=== PATIENT | female | born 1970 | race Caucasian/White ===

== ENCOUNTER → 2017-09-21 14:29 | Outpatient (POV) | payer MEDICAID, SELFPAY | PROVIDERS: Visit Provider Internal Medicine | DX: Z00.00 Encounter for general adult medical examination without abnormal findings (principal) ==

== ENCOUNTER 2019-12-11 19:24 | Emergency (ER) | payer MEDICAID, SELFPAY ==
[2019-12-11 19:31] VITALS: BP 158/98; PULSE 100; RESP 20; TEMP 36.6; O2SAT 93; BMI 24.0
--- NOTE | 2019-12-11 19:59 | XR_ITS ---
PROCEDURE: XR WRIST RT MIN 3V CLINICAL INDICATION: fall Posttraumatic pain COMPARISON: No exams were available for comparison FINDINGS: No fracture, dislocation, lytic change, or blastic change evident. No significant degenerative change IMPRESSION: No acute findings. Dictated by: Bharath West MD 12/12/2019 06:58 Electronically signed by Bharath West MD in [place] 12/12/2019 06:58
--- NOTE | 2019-12-11 20:05 | HMH.EDUPEXT ---
ED Disposition Clinical Impression: Fracture of wrist Qualifiers: Encounter type: initial encounter Fracture type: closed Laterality: right Qualified Code(s): S62.101A - Fracture of unspecified carpal bone, right wrist, initial encounter for closed fracture Disposition: Home, Self-Care Condition on Discharge: Good Instructions: DI for Wrist Fracture Additional Instructions: ice and call ortho in am Referrals: Steffi Colón [Primary Care Provider] - Pankaj Nicole MD [Staff Physician] - - Critical Care Critical Care Time: No Attestation: On , the high probability of a clinically significant, sudden or life threatening deterioration of the following system(s) required my full and direct attention, intervention and personal management. The time I documented below is in addition to time spent performing reported procedures but includes the following listed in this critical care notation. Medical Decision Making - Medical Records Medical records reviewed: Yes: I reviewed the patient's medical records. - Shaheed Inquiry Pt receiving controlled substance: No Vital Signs: 12/11/19 19:31 Temperature 97.9 F Temperature Source Oral Pulse Rate [Right Radial] 100 H Respiratory Rate 20 Blood Pressure [Left Arm] 158/98 H Blood Pressure Mean [Left Arm] 118 Blood Pressure Source [Left Arm] Automatic Cuff Blood Pressure Position [Left Arm] Supine 02 Sat by Pulse Oximetry 93 L Oxygen Delivery Method Room Air - Lab Data Lab results reviewed: Yes: I reviewed the patient's lab results. Orders (Tests/Meds): ED MEDICATIONS Discontinued Medications Generic Name Dose Route Start Last Admin Trade Name Freq PRN Reason Stop Dose Admin Ketorolac Tromethamine 60 mg 12/11/19 19:59 12/11/19 20:02 Toradol 60mg/2ml Vial IM 12/11/19 20:00 60 mg ONCE ONE Administration ORDERS Category Date Time Status XR wrist RT min 3V Stat Exams 12/11/19 19:59 Ordered - Radiology Data #1 Image(s): Wrist Image Reviewed: Yes I reviewed the patient's radiology image Preliminary Findings: Abnormal (prob fx ) Upper Extremity HPI - General Chief Complaint: Extremity Injury, Upper Stated Complaint: AO [id number] Fell, injury to right wrist/arm Time Seen by Provider: 12/11/19 20:05 Mode of Arrival: Ambulatory Source of Information: Patient, Medical Record Limitations: No Limitations Description of Symptoms (Recalled from ER Triage Doc. by RN): fell last night on right wrist painful to move fingers and wrist. edema noted. - History of Present Illness HPI narrative: fell last pm with rt wrist injury - no other c/o MD complaint: injury to: right, wrist Onset (ago): day(s) Other Extremity Injury: Right: wrist Other injuries: none Handedness: right Place: home Severity: moderate Context: fall Associated symptoms: denies other symptoms - Related Data Previous Rx's Medication Instructions Recorded Azithromycin [Z-Florentin 250mg Tab*] 250 mg PO UD DOSE PK #6 tab 07/31/18 Benzonatate [Tessalon Perle 100mg 100 mg PO TID PRN #30 cap 07/31/18 Cap] predniSONE [Prednisone 5mg Tab 5 mg PO UD DOSE PK #21 pack 07/31/18 Dose-Pack] Cefdinir [Omnicef 300mg Capsule] 300 mg PO BID #20 cap 02/07/19 predniSONE [Deltasone 10mg tablet] 10 mg PO BID 5 Days #10 tab 02/07/19 Allergies Allergy/AdvReac Type Severity Reaction Status Date / Time No Known Allergies Allergy Verified 07/31/18 17:06 [facility] History - Hepatitis A Screen Drug use history?: No High risk sexual behaviors?: No History of sexually transmitted infection?: No Currently employed?: No Childcare worker?: No Do you have indoor plumbing?: Yes Do you have electricity?: Yes Attestation statement:: This patient has been screened for Hepatitis A risk factors. I have reviewed the patient's past medical history: Yes Medical History: Denies:: Cancer, Diabetes Mellitus Type 1, Diabetes Mellitus Type 2, MRSA Amputation: No Fractures: No -
[2019-12-11 20:44] VITALS: BP 150/92; PULSE 90; RESP 18; TEMP 36.6; O2SAT 95
== END 2019-12-11 20:50 | disposition home or self-care (01) ==
PROVIDERS: Emergency Provider Family Medicine; PCP Nurse Practitioner Family
DX: S62.101A Fracture of unspecified carpal bone, right wrist, initial encounter for closed fracture (principal); W01.0XXA Fall on same level from slipping, tripping and stumbling without subsequent striking against object, initial encounter; Y92.019 Unspecified place in single-family (private) house as the place of occurrence of the external cause; F17.210 Nicotine dependence, cigarettes, uncomplicated
CPT/HCPCS: 73110; 96372; 99283

== ENCOUNTER → 2020-03-21 18:37 | Outpatient (CLI) | payer MEDICAID, SELFPAY ==
--- NOTE | 2020-03-21 19:01 | XR_ITS ---
PROCEDURE: XR CHEST 2V CLINICAL HISTORY: COUGH COMPARISON: CR CXR CHEST(2 VIEWS-NOT PORTABLE) from 01/19/2015 CR CXR2V XR chest 2V from 07/31/2018 CR XR CHEST 2V from 02/07/2019 FINDINGS: There is mild cardiomegaly. There is also mild pulmonary venous congestion suggesting mild CHF. There is increased density in the right lung base consistent with infiltrate with small effusion. Hyperinflation noted with increased AP dimension of the chest consistent with COPD. IMPRESSION: Mild CHF with right lower lobe infiltrate with effusion Dictated by: Bharath West MD 03/21/2020 20:42 Bharath West MD in [place] 03/21/2020 20:42
== END ==
PROVIDERS: PCP Physician Assistant; Visit Provider Physician Assistant
DX: R05 Cough (principal)
CPT/HCPCS: 71046

== ENCOUNTER 2020-03-22 20:11 | Inpatient (IN) | payer MEDICAID, SELFPAY ==
[2020-03-22 20:12] VITALS: BP 136/97; PULSE 99; RESP 18; TEMP 36.9; O2SAT 88; BMI 26.4
--- NOTE | 2020-03-22 21:03 | XR_ITS ---
PROCEDURE: XR CHEST 2V CLINICAL HISTORY: sob Shortness of breath COMPARISON: CR CXR2V XR chest 2V from 07/31/2018 CR XR CHEST 2V from 02/07/2019 CR XR CHEST 2V from 03/21/2020 FINDINGS: Mild cardiomegaly with mild pulmonary venous congestion and small right pleural effusion consistent with CHF. Slight improvement right basilar atelectasis or infiltrate IMPRESSION: CHF with right basilar atelectasis or infiltrate slightly improved with small right effusion Dictated by: Bharath West MD 03/23/2020 07:40 Bharath West MD in [place] 03/23/2020 07:40
--- NOTE | 2020-03-22 21:04 | HMH.EDGENADL ---
ED Disposition Clinical Impression: Pneumonia Qualifiers: Pneumonia type: due to unspecified organism Laterality: right Lung location: lower lobe of lung Qualified Code(s): J18.9 - Pneumonia, unspecified organism Disposition: Admitted As Inpatient Condition on Discharge: Good Referrals: Nan Simon APRN [Primary Care Provider] - - Critical Care Critical Care Time: No Attestation: On 03/22/20, the high probability of a clinically significant, sudden or life threatening deterioration of the following system(s) required my full and direct attention, intervention and personal management. The time I documented below is in addition to time spent performing reported procedures but includes the following listed in this critical care notation. Medical Decision Making - Shaheed Inquiry Pt receiving controlled substance: No Vital Signs: 03/22/20 20:12 03/22/20 21:38 Temperature 98.5 F Temperature Source Oral Pulse Rate [Left Radial] 99 H 87 Respiratory Rate 18 20 Blood Pressure [Right Arm] 136/97 H 145/84 H Blood Pressure Mean [Right Arm] 110 104 Blood Pressure Source [Right Arm] Automatic Cuff Blood Pressure Position [Right Arm] Sitting 02 Sat by Pulse Oximetry 88 L 91 L Oxygen Delivery Method Room Air Nasal Cannula Oxygen Flow Rate (LPM) 2 - Lab Data Lab Results 03/22/20 20:54: WBC 9.3, RBC 5.54 H, Hgb 16.6 H, Hct 52.1 H, MCV 94.0, MCH 29.9, MCHC 31.8, RDW 13.3, Plt Count 165, MPV 9.8, Neut % (Auto) 71.4, Lymph % (Auto) 21.7, [place] % (Auto) 6.2, Eos % (Auto) 0.2, Baso % (Auto) 0.5, Neut # (Auto) 6.7, Lymph # (Auto) 2.0, [place] # (Auto) 0.6, Eos # (Auto) 0.0, Baso # (Auto) 0.1 03/22/20 20:54: Sodium 139, Potassium 3.5, Chloride 96 L, Carbon Dioxide 38 H, Anion Gap 8.5, BUN 11, Creatinine 0.70, Estimated Creat Clear 94, Estimated GFR 89, Est GFR ( Amer) 108, Glucose 127 H, Calcium 9.2, Troponin I < 0.01, NT-Pro-B Natriuret Pep 157 H 03/22/20 20:54: Lactate 1.1 Result diagrams: 03/22/20 20:54 03/22/20 20:54 Orders (Tests/Meds): ED MEDICATIONS Discontinued Medications Generic Name Dose Route Start Last Admin Trade Name Billie PRN Reason Stop Dose Admin Amoxicillin/Clavulanate Potassium 2 each 03/22/20 21:02 03/22/20 21:26 Amoxicillin/Pot Clavulan 500mg Tablet PO 03/22/20 21:03 2 each ONCE ONE Administration Protocol Azithromycin 500 mg 03/22/20 21:02 03/22/20 21:28 Azithromycin 250mg Tablet PO 03/22/20 21:03 500 mg ONCE ONE Administration Protocol Diazepam 2 mg 03/22/20 21:02 Diazepam 2mg Tablet PO 03/22/20 21:03 ONCE ONE Diazepam 2.5 mg 03/22/20 21:27 03/22/20 21:33 Diazepam 5mg Tablet PO 03/22/20 21:28 2.5 mg ONCE ONE Administration ORDERS Category Date Time Status XR chest 2V Stat Exams 03/22/20 21:03 Taken Covid-19 IgG/IgM ([facility]) Stat Lab 03/22/20 20:54 Received Troponin I Q3H Lab 03/23/20 00:15 Ordered Troponin I Q3H Lab 03/23/20 03:15 Ordered Blood Culture Stat Micro 03/22/20 20:54 Received Medical Decision Narrative: Presents for shortness of breath. Patient has past medical history of COPD, patient's x-ray from yesterday was concerning for pneumonia and congestive heart failure. Bedside echocardiogram demonstrates clear ejection fraction with B-lines in multiple lung green. Patient chest x-ray was obtained, no pneumothorax, does have a pleural effusion on the right side small with mild pulmonary edema. Patient was started on community-acquired pneumonia antibiotics with Augmentin and azithromycin, no risk factors for staph or Pseudomonas. Patient had rapid Covid test ordered, blood work was also ordered. On repeat assessment patient's troponin was negative, BNP was low. Patient is admitted to medicine for further work-up. General Adult HPI - General Chief complaint: Shortness of Breath/Dyspnea Stated complaint: SOB Time Seen by Provider: 03/22/20 21:00 Mode of Arrival: Ambulatory Limitations: No Li
[2020-03-22 21:10] LABS: Chloride 96 mmol/L (98-107); Potassium 3.5 mmoL/L (3.5-5.1); Sodium 139 mmol/L (136-145)
[2020-03-22 21:13] LABS: Blood Urea Nitrogen 11 mg/dl (7-17); Creatinine Clearance Estimated 94 mL/min (50-200); Estimated Glomerular Filt Rate 89 ml/min (>60); GFR (African American) 108 ML/MIN (>60)
[2020-03-22 21:14] LABS: Anion Gap 8.5 mEq/L (5-15); Calcium 9.2 mg/dl (8.4-10.2); Carbon Dioxide 38 mmol/L (22.0-30.0); Glucose 127 mg/dl (74-100)
[2020-03-22 21:15] LABS: Lactic Acid 1.1 mmol/L (0.7-2.1)
[2020-03-22 21:23] LABS: Basophils # 0.1 K/mm3 (0-0.2); Basophils % 0.5 % (0.1-2.0); Eosinophils % 0.2 % (0.1-12.0); Hematocrit 52.1 % (37.0-47.0); Hemoglobin 16.6 g/dL (12.2-16.2); Lymphocytes % 21.7 % (10-50); Mean Corpuscular HGB Conc 31.8 g/dL (31.8-35.4); Mean Corpuscular Hemoglobin 29.9 pg (27.0-31.2); Mean Platelet Volume 9.8 fl (7.4-10.4); Monocytes # 0.6 K/mm3 (0.1-1.0); Monocytes % 6.2 % (1.7-9.3); NT Pro Brain Natriuretic Pep. 157 pg/mL (0-125); Neutrophils # 6.7 K/mm3 (1.8-7.8); Neutrophils % 71.4 % (37.0-80.0); Platelet Count 165 K/mm3 (142-424); Red Blood Count 5.54 M/mm3 (4.20-5.40); Red Cell Distribution Width 13.3 % (11.5-17.5); White Blood Count 9.3 K/mm3 (4.8-10.8)
[2020-03-22 21:38] VITALS: BP 145/84; PULSE 87; RESP 20; O2SAT 91
[2020-03-22 21:56] LABS: Troponin I < 0.01 ng/ml (0.00-0.034)
[2020-03-22 22:30] LABS: Coronavirus 19 IgG Antibody Negative (Negative); Coronavirus 19 IgM Antibody Negative (Negative)
[2020-03-22 22:37] VITALS: BP 132/79; PULSE 74; RESP 16; O2SAT 92
[2020-03-22 23:05] VITALS: BMI 25.7
--- NOTE | 2020-03-22 23:12 | PC.NURSE ---
patient up to floor via wheelchair.
[2020-03-22 23:19] VITALS: BP 137/87; PULSE 71; RESP 16; TEMP 36.9; O2SAT 91
[2020-03-22 23:51] VITALS: PULSE 80
[2020-03-23] VITALS (11 sets, daily range): BP systolic 126–151; BP diastolic 64–94; PULSE 60–84; RESP 17–22; TEMP 36.4–37; O2SAT 90–97; BMI 26.2
[2020-03-23 01:00] LABS: Troponin I < 0.01 ng/ml (0.00-0.034)
[2020-03-23 03:53] LABS: Basophils # 0.1 K/mm3 (0-0.2); Basophils % 0.8 % (0.1-2.0); Eosinophils # 0.2 K/mm3 (0.0-0.4); Eosinophils % 2.1 % (0.1-12.0); Hematocrit 49.8 % (37.0-47.0); Hemoglobin 15.8 g/dL (12.2-16.2); Lymphocytes # 2.4 K/mm3 (0.7-4.5); Mean Corpuscular HGB Conc 31.7 g/dL (31.8-35.4); Mean Corpuscular Volume 94.8 fl (81-99); Mean Platelet Volume 9.3 fl (7.4-10.4); Monocytes # 0.9 K/mm3 (0.1-1.0); Monocytes % 10.9 % (1.7-9.3); Neutrophils # 4.9 K/mm3 (1.8-7.8); Neutrophils % 58.1 % (37.0-80.0); Platelet Count 141 K/mm3 (142-424); Red Blood Count 5.26 M/mm3 (4.20-5.40); Red Cell Distribution Width 13.1 % (11.5-17.5); White Blood Count 8.5 K/mm3 (4.8-10.8)
[2020-03-23 04:03] LABS: Anion Gap 5.5 mEq/L (5-15); Blood Urea Nitrogen 12 mg/dl (7-17); Calcium 8.6 mg/dl (8.4-10.2); Carbon Dioxide 38 mmol/L (22.0-30.0); Chloride 99 mmol/L (98-107); Creatinine Clearance Estimated 92 mL/min (50-200); Estimated Glomerular Filt Rate 89 ml/min (>60); GFR (African American) 108 ML/MIN (>60); Glucose 121 mg/dl (74-100); Potassium 3.5 mmoL/L (3.5-5.1); Sodium 139 mmol/L (136-145)
[2020-03-23 04:16] LABS: Troponin I < 0.01 ng/ml (0.00-0.034)
--- NOTE | 2020-03-23 05:51 | PC.NURSE ---
shift summary, no acute changes since admission assessment this shift by prior nurse, pt does get short of air with exertion, pt treated for cough and headache per AUG at 0148, no other complaints of JERNIGAN this shift, pt cough is now more wet but patient states nothing is really coming up, pt has stayed awake most of shift, has ambulated to bathroom independently one time, pt is on 2L NC with O2 sats between 90-96%, no complaints of chest pain, N/V, HR has been between 70-80, and has remained NSR on hall monitor
--- NOTE | 2020-03-23 08:40 | HMH.HP ---
*Admission Date: 03/22/20 *Chief complaint: shortness of breath *History of present illness: Ms. Chavez is a 49-year-old white female with a longstanding history of oxygen dependent COPD obstructive sleep apnea who follows with a nurse practitioner in [place] for primary care. She states that she has been bit more short of breath for the past month but acutely worse over the past week. Her primary care provider ordered an outpatient chest x-ray yesterday which was concerning for a possible right lower lobe infiltrate and mild congestive heart failure. She had been started on Levaquin and Medrol Dosepak as an outpatient but began noticing her O2 sats at home dropping into the 40s and 50s at night. She therefore presented to the emergency room. Work-up in the emergency room shows a normal white count. Her chest x-ray continued to show mild CHF, cardiomegaly, and atelectasis versus infiltrate in the right lower lobe. Color testing negative. BNP was low. She has been admitted for treatment of presumptive community-acquired pneumonia and exacerbation of her COPD. [facility] History Medical History: Reports:: Chronic Obstructive Pulmonary Disease (COPD), Hypertension Denies:: Cancer, Congestive Heart Failure, Coronary Artery Disease, Diabetes Mellitus Type 1, Diabetes Mellitus Type 2, MRSA *Have you ever received a pneumonia vaccine?: Yes *Have you received a flu vaccine this season?: Yes Other Medical History: Denies: Other (Sleep apnea) Laterality Cases: Right: Carpal Tunnel Release Other Surgeries: Yes: (x3) Amputation: No Fractures: No - *Social History Smoking Status: Current every day smoker Tobacco Type: cigarettes # Packs/Day (cigarettes): 2 Alcohol Intake: former Alcohol Intake Frequency:: 3 or more drinks per day Substance Use Type: former substance user, marijuana *Occupational Status:: disabled Household Members: family *Travel in the last 8 weeks: None Family Hx:: Coronary Artery Disease, Other (Her mother with COPD) Review of Systems - Constitutional Reports fatigue, Denies body ache(s) (I) - Eyes Denies change in vision - ENT Reports headache(s), Denies abnormal hearing, Denies difficulty swallowing - *Cardiovascular Reports shortness of breath with activity, Reports shortness of breath when lying down, Denies chest pain, Denies generalized swelling, Denies rapid, pounding, or irregular heartbeat - *Respiratory Reports other (See HPI) - *Gastrointestinal Denies abdominal pain, Denies change in bowel habits, Denies heartburn - *Genitourinary Denies abnormal periods, Denies difficulty urinating, Denies painful urination - *Musculoskeletal Denies joint pain - Integumentary/Breasts Denies hair loss, Denies unusual bruising - *Neurologic Reports headache(s) (mostly in the morning), Denies loss of vision, Denies dizziness - Psychiatric Reports abnormal sleep pattern, Reports confusion - Endocrine Denies excessive sweating - Hematologic/Lymphatic Denies easy bruising - Allergic/Immunologic Denies itchy eyes, Denies seasonal runny nose Meds Home Medications Medication Instructions Recorded Confirmed Type diazePAM [Valium 2mg tablet] 2 mg PO NEEDED PRN 03/22/20 03/22/20 History levoFLOXacin [Levaquin 500mg 500 mg PO DAILY 03/22/20 03/22/20 History tab] methylPREDNISolone [Methylpred Dp] 4 mg PO DAILY 03/22/20 03/22/20 History Albuterol Sulfate [Proair Hfa] 2 puffs IH Q6HP PRN 03/23/20 03/23/20 History Allergies Allergy/AdvReac Type Severity Reaction Status Date / Time No Known Allergies Allergy Verified 03/22/20 21:10 Exam Vital signs and Labs for Last 24 Hours: Temp Pulse Resp BP Pulse Ox 97.8 F 68 18 133/64 95 03/23/20 07:54 03/23/20 07:54 03/23/20 07:54 03/23/20 07:54 03/23/20 07:54 Laboratory Results - last 24 hr 03/22/20 20:54: WBC 9.3, RBC 5.54 H, Hgb 16.6 H, Hct 52.1 H, MCV 94.0, MCH 29.9, MCHC 31.8, RDW 13.3, Plt Count 165, MPV
--- NOTE | 2020-03-23 11:40 | HMH.PHAVTE ---
[facility] Pharmacy VTE Monitoring - Patient Demographics Admission date: 03/23/20 Report Date: 03/23/20 Time: 11:40 Allergies/Adverse Reactions: Patient Allergies No Known Allergies Allergy (Verified 03/22/20 21:10) Height: 1.52 m Weight: 60.47 kg Patient Problems: Current Active Problems Chronic obstructive pulmonary disease with acute exacerbation (Acute) Pneumonia (Acute) Community acquired pneumonia (Acute) Obstructive sleep apnea (Acute) Pulmonary edema (Acute) Cardiomegaly (Acute) Tobacco abuse disorder (Acute) - VTE Risk Labs: VTE Related Lab Results Hgb 15.8 g/dL (12.2-16.2) 03/23/20 03:40 Hct 49.8 % (37.0-47.0) H 03/23/20 03:40 Plt Count 141 K/mm3 (142-424) L 03/23/20 03:40 BUN 12 mg/dl (7-17) 03/23/20 03:40 Creatinine 0.70 mg/dl (0.52-1.04) 03/23/20 03:40 Estimated Creat Clear 92 mL/min (50-200) 03/23/20 03:40 Was VTE Risk Assessment Performed: Yes VTE Score: 5 VTE Risk Level: Low Risk - Prophylaxis Types of VTE Prophylaxis: TEDS Knee High (KENNEDY HOSE ORDERED) Location of Applied Device: Bilateral Lower Extremeties
--- NOTE | 2020-03-23 13:08 | PC.NURSE ---
A&OX4. PT HAS TOLERATED 2L NC WELL THROUGHOUT SHIFT. RESPIRATIONS REGULAR AND UNLABORED. WHEEZES AND CRACKLES NOTED THROUGHOUT LUNGS. PT IS AWARE FOR NEED FOR SPUTUM SAMPLE. SPECIMEN CUP AT BEDSIDE. NO EDEMA NOTED. +2 PULSES NOTED THROUGHOUT. HAND ASSISTANT FRONT END MANAGER EQUAL. SOFT AND NONTENDER ABDOMEN. ACTIVE BOWEL SOUNDS HEARD IN ALL 4 QUADRANTS. NO BM THUS FAR. PT VOIDS TO BATHROOM INDEPENDENTLY. IV WENT BAD AND A NEW IV IS BEING INSERTED AT THIS TIME. DAUGHTER AT BEDSIDE. PT REPORTED HEADACHE ONCE THIS SHIFT AND RECEIVED TYLENOL. PT IS CURRENTLY WALKING AROUND. VSS. WILL CONTINUE TO MONITOR.
--- NOTE | 2020-03-23 19:38 | PC.NURSE ---
P IS RESTING IN BED WITH FAMILY IN THE ROOM. AT 1245 TODAY PT LEFT THE FLOOR AND DID NOT RETURN BACK TO THE FLOOR TILL 1430. PT STATED SHE WENT OUTSIDE TO VISIT HER SISTER. WHEN PT ARRIVED BACK TO THE FLOOR O2 SATURATION WAS 90% ON 2 L NC. OXYGEN WAS REMOVED TO GET ROOM AIR SATURATION AND IT WAS 76%. PT WAS EDUCATED ON HOW DANGEROUS IT WAS FOR HER TO BE LEAVING THE FLOOR WITH AN O2 SATURATION THAT LOW AND SHE WAS ADVISED NOT TO LEAVE THE FLOOR AGAIN. PT WAS TOLD THAT SHE COULD AMBULATE ON THE FLOOR BUT SHE NEEDED TO HAVE HER OXYGEN ON AND 1 PERSON AMBULATING WITH HER AND IT COULD BE FAMILY OR A NURSE OR TECH ON THE FLOOR.
--- NOTE | 2020-03-23 19:53 | PC.NURSE ---
RT collected SPT and sent it to lab from second floor at 1820.
[2020-03-24] VITALS (13 sets, daily range): BP systolic 119–152; BP diastolic 55–89; PULSE 60–95; RESP 18–24; TEMP 36.5–36.8; O2SAT 77–92; BMI 26.3
--- NOTE | 2020-03-24 03:40 | PC.NURSE ---
Pt is currently sleeping in bed at this time. At the beginning of the shift pt tried to leave the floor x2. This nurse caught up with pt and daughter advising her how dangerous it is to be walking off the floor without o2 and then educating the pt that even if she went outside with o2 she could not go smoke. This nurse accompanied pt back to her room. Pt's room air sat was checked and was 82%, pt o2 sat increased to 90% with 2 L NC applied. Pt was offered a nicotine patch and she refused. Pt's daughter came out into the [place]o shortly after telling this nurse that mom agreed to a nicotine patch . Nicotine patch was applied to pt's Lt shoulder. Pt was also approached by Charge nurse this shift regarding our visitor policy. At one point, pt had 3 visitors in room. Charge nurse, Jonas Paniagua, HEMAL educated pt and visitors that there was only to be 1 well visitor in the pt's room at a time. Pt and family members verbalized understanding, and 2 of the 3 visitors left the hospital. Pt is A&O x4. Fine crackles with inspiratory and expiratory wheezing heard BL t/o upon auscultation. PIV in LAC remains patent and SL. Active bowel sounds in all 4 quads. Skin remains CDI besides areas where IV sticks have been attempted on pt. Pt is still currently on 2 L NC, 90% o2 SAT. Daughter remains at bedside. Call light is within reach. Will continue to monitor.
--- NOTE | 2020-03-24 10:19 | HMH.ACPN2 ---
Internal Medicine - PN: Subj *Date: 03/24/20 *Time: 10:19 Interval history: States she does not feel as well this morning. Seems to be coughing more and is still short of breath. States her oxygen came off during the night and her sats dropped. Nursing staff notes that she was off the floor and out of the building for almost 2 hours yesterday afternoon without her oxygen. On assessment her O2 sats dropped quickly to the 70s and 80s without oxygen. She is advised not to leave the floor and to stay on continuous oxygen. Exam Vital signs and Labs for Last 24 Hours: Temp Pulse Resp BP Pulse Ox 98.1 F 74 20 150/86 H 88 L 03/24/20 07:47 03/24/20 07:47 03/24/20 07:47 03/24/20 07:47 03/24/20 08:30 I & O for Last 24 hours: Intake & Output 03/21/20 03/22/20 03/23/20 03/24/20 11:59 11:59 11:59 11:59 Intake Total 600 / 600 1280 / 1280 Balance 600 / 600 1280 / 1280 Weight 133 lb 5 oz 134 lb Microbiology Reports for the Last 24 Hours: Microbiology 03/23/20 18:20 Sputum - Expectorated Sputum Gram Stain - Final 03/23/20 18:20 Sputum - Expectorated Sputum Sputum Culture - Preliminary Narrative: She appears not to feel well. She has a congested cough. No respiratory distress. Color is normal. Chest reveals generally diminished breath sounds throughout both lung green with coarse rhonchi and wheezes. Heart is regular. Extremities no edema. Assessment and Plan (1) Chronic obstructive pulmonary disease with acute exacerbation Status: Acute Category: Medical Code(s): J44.1 - Chronic obstructive pulmonary disease with (acute) exacerbation (2) Obstructive sleep apnea Status: Acute Category: Medical Code(s): G47.33 - Obstructive sleep apnea (adult) (pediatric) (3) Community acquired pneumonia Status: Acute Category: Medical Code(s): J18.9 - Pneumonia, unspecified organism (4) Pulmonary edema Status: Acute Category: Medical Code(s): J81.1 - Chronic pulmonary edema (5) Cardiomegaly Status: Acute Category: Medical Code(s): I51.7 - Cardiomegaly (6) Tobacco abuse disorder Status: Acute Category: Medical Code(s): Z72.0 - Tobacco use - Assessment and plan all Dx Assessment and Plan for all problems:: She had been going off the floor, likely to smoke. She has been advised to not leave the floor. Sputum cultures showing gram-positive cocci. ID still pending. Continue current antibiotic regimen. Plan echocardiogram for tomorrow and cardiology consult.
--- NOTE | 2020-03-24 15:27 | PC.NURSE ---
A&OX4. PT HAS TOLERATED 2.5L WELL THROUGHOUT SHIFT. SHE IS CURRENTLY ON 2L NC TOLERATING WELL. RESPIRATIONS REGULAR AND UNLABORED. RHONCHI NOTED THROUGHOUT LUNGS. ACTIVE BOWEL SOUNDS NOTED IN ALL 4 QUADRANTS. SOFT AND NONTENDER ABDOMEN. NO BM REPORTED. PT VOIDS INDEPENDENTLY PER BATHROOM. STEADY GAIT NOTED. HAND MAINFRAME APPLICATIONS DEVELOPER EQUAL. +2 PULSES NOTED THROUGHOUT. PT REPORTED PAIN ONCE THIS SHIFT SO FAR AND RECEIVED TYLENOL FOR A HEADACHE. NO EDEMA NOTED. PT HAS BEEN ON TELE THROUGHOUT SHIFT. PT ASKED TO GO FOR A WALK AND I TOLD HER NO SHE HAD TO STAY ON THE FLOOR. I DIDN'T FEEL COMFORTABLE W HER LEAVING WITH NO OXYGEN DUE TO COMING BACK YESTERDAY WITH A OXYGEN SATURATION IN THE 70S. SHE ISN'T ALLOWED TO TAKE AN OXYGEN TANK WITH HER EITHER. PT WAS UPSET AT FIRST, BUT UNDERSTANDS AND HAS BEEN FINE SINCE. I TOLD HER SHE WAS MORE THAN WELCOME TO WALK AROUND THE FLOOR IF DESIRED, BUT SHE HASN'T YET. SHE HAS BEEN SEEN WALKING IN HER ROOM SOME. PT ADMITTED TO WANTING TO GO OUTSIDE TO SMOKE. I EXPLAINED THE SMOKING POLICY HERE AND OFFERED A NICOTINE PATCH. SHE HAS REFUSED SEVERAL TIMES. PT REQUESTED STEROIDS. DR LEVINE WAS CONTACTED AND HE EXPLAINED HE DIDN'T WANT HER TO HAVE ANY DUE OT HAVING PULMONARY EDEMA AND STEROIDS CAN MAKE IT WORSE. THIS WAS EXPLAINED TO THE PT AND SHE WAS FINE WITH IT. DAUGHTER HAS BEEN AT BEDSIDE MOST OF THE DAY. PT IS CURRENTLY SLEEPING WITH CALL LIGHT WITHIN REACH. BED IN LOWEST POSITION. VSS. WILL CONTINUE TO MONITOR.
--- NOTE | 2020-03-24 19:54 | PC.NURSE ---
Pt began shift by telling SRNA that zulay RN had said she could leave the floor to go downstairs to visit with her son. Zulay RN did not tell this, instead told her that per MD she was not to leave the floor. Told this RN that she was allowed to leave the floor. Advised pt that per MD she could not leave floor.
--- NOTE | 2020-03-24 20:50 | PC.NURSE ---
Pt left floor at 2039 via wheelchair with daughter.
--- NOTE | 2020-03-24 21:16 | PC.NURSE ---
2109 Pt returned to floor. oxygen reapplied.
[2020-03-25] VITALS (15 sets, daily range): BP systolic 113–161; BP diastolic 61–84; PULSE 60–112; RESP 18–22; TEMP 36.4–36.9; O2SAT 88–92; BMI 26.5
--- NOTE | 2020-03-25 03:28 | PC.NURSE ---
Pt has slept intermittently this shift. Denies increased soa/pain. Lung sounds are diminished with occasional wheezes noted. Pt has shown no s/sx of anxiety since leaving floor at 2039 to smoke. Pt did arrive back to floor within the 30 min time limit set by Dr. Crandall. Pt continues to have frequent non-productive cough when awake.
--- NOTE | 2020-03-25 07:34 | HMH.CNCARD ---
History of Present Illness Consult date: 03/25/20 Requesting physician: Jeff Crandall Consult reason: congestive heart failure, shortness of breath Chief complaint: SOA Additional Medical History:: 1. COPD with continued tobacco use of 2 packs/day A. Intermittent use of oxygen at home 2. History of hypertension, on no medications at home 3. History of anxiety History of present illness: Ms. Chavez is a 49-year-old white female with a longstanding history of oxygen dependent COPD obstructive sleep apnea who follows with a nurse practitioner in [place] for primary care. She states that she has been bit more short of breath for the past month but acutely worse over the past week. Her primary care provider ordered an outpatient chest x-ray yesterday which was concerning for a possible right lower lobe infiltrate and mild congestive heart failure. She had been started on Levaquin and Medrol Dosepak as an outpatient but began noticing her O2 sats at home dropping into the 40s and 50s at night. She therefore presented to the emergency room. Work-up in the emergency room shows a normal white count. Her chest x-ray continued to show mild CHF, cardiomegaly, and atelectasis versus infiltrate in the right lower lobe. Color testing negative. BNP was low. She has been admitted for treatment of presumptive community-acquired pneumonia and exacerbation of her COPD. The above per Dr. Crandall. Pt denies any history of cardiac issues. She previously was on blood pressure medication but discontinued all of her medications about 3 years ago due to weight gain. She states since discontinuing her medication she has lost about 70 lbs. She only takes her oxygen and Valium at home. She continues to smoke 2 packs of cigarettes per day. On admission patient was noted to have evidence of mild CHF on chest x-ray. Mildly elevated BNP 157. Patient also noted to have evidence of right-sided infiltrate. Troponins have returned normal x3 with EKG showing sinus rhythm and no acute ST segment changes. Preliminary echocardiogram shows preserved ejection fraction with mild aortic insufficiency and evidence of mild diastolic dysfunction. [facility] History Medical History: Reports:: Chronic Obstructive Pulmonary Disease (COPD), Hypertension Denies:: Cancer, Congestive Heart Failure, Coronary Artery Disease, Diabetes Mellitus Type 1, Diabetes Mellitus Type 2, MRSA *Have you ever received a pneumonia vaccine?: Yes *Have you received a flu vaccine this season?: Yes Other Medical History: Denies: Other (Sleep apnea) Laterality Cases: Right: Carpal Tunnel Release Other Surgeries: Yes: (x3) Amputation: No Fractures: No - *Social History Smoking Status: Current every day smoker Tobacco Type: cigarettes # Packs/Day (cigarettes): 2 Alcohol Intake: former Alcohol Intake Frequency:: 3 or more drinks per day Substance Use Type: former substance user, marijuana *Occupational Status:: disabled Household Members: family *Travel in the last 8 weeks: None Family Hx:: Coronary Artery Disease, Other (Her mother with COPD) Meds Home Medications Medication Instructions Recorded Confirmed Type diazePAM [Valium 2mg tablet] 2 mg PO NEEDED PRN 03/22/20 03/22/20 History levoFLOXacin [Levaquin 500mg 500 mg PO DAILY 03/22/20 03/22/20 History tab] methylPREDNISolone [Methylpred Dp] 4 mg PO DAILY 03/22/20 03/22/20 History Albuterol Sulfate [Proair Hfa] 2 puffs IH Q6HP PRN 03/23/20 03/23/20 History Allergies Allergy/AdvReac Type Severity Reaction Status Date / Time No Known Allergies Allergy Verified 03/22/20 21:10 Exam Vital signs and Labs for Last 24 Hours: Temp Pulse Resp BP Pulse Ox 97.6 F 112 H 22 161/61 H 88 L 03/25/20 03:56 03/25/20 06:27 03/25/20 03:56 03/25/20 03:56 03/25/20 06:27 I & O for Last 24 hours: Intake & Output 03/22/20 03/23/20 03/24/20 03/25/20 11:59 11:59 11:59 11:59 Intake Total 600 / 600
--- NOTE | 2020-03-25 08:38 | CA_ITS ---
APPROVED REPORT EXAM: Comprehensive 2D, Doppler, and color-flow Echocardiogram [employer]: Aide Balderas CRT Ht: 5 ft 7 in Wt: 135lbs BSA: 1.71 BP: 110/70 mmHg Indications: chf,copd,smoker,htn,soa 2D Dimensions LVOT 1.98 cm (M/F) 1.5-2.5 M-Mode Dimensions RVDd 2.15 cm (0.9-2.6) LA Diam 3.12 cm (1.9-4.0) LVDd 5.42 cm (3.5-5.7) Ao Diam 2.94 cm (2.0-3.7) LVDs 3.95 cm (3.5-5.7) IVSd 1.00 cm (0.6-1.1) PWd 0.83 cm (0.6-1.1) EF (Teich) 52.40% FS 27.10% EDV (Teich) 142.50 mL ESV (Teich) 67.90 mL LV Diastology E Decel Time 170.00 (160-240 msec) E/A Ratio 0.9 MED E' 7.80 (< 7 cm/sec) E'/MED E' Ratio 12.40 (>14) LAT E' 10.00 (<10 cm/sec) E/LAT E' Ratio 9.67 (>14) Aortic Valve AI PHT 611.00 ms Mitral Valve MV E Max Indra. 97.00 (40-130 cm/s) MV A Velocity 103.00 (40-130 cm/s) E/A Ratio 0.94 MV Decel. Time 170.00 (160-240 ms) MV PHT 50.00 ms Left Ventricle Left atrium is mildly enlarged, left ventricle is normal size, mild concentric left ventricular hypertrophy, visually estimated ejection fraction 55% with no regional wall motion abnormality, diastolic parameters are inconclusive. Right Ventricle Right atrium and right ventricle are normal size and contractility. Aortic Valve Aortic valve is thickened and calcified leaflet chordae display good mobility, there is no aortic stenosis, there is mild aortic insufficiency. Mitral Valve Mitral valve leaflets are minimally thickened, there is mild mitral regurgitation. Tricuspid Valve Tricuspid valve is grossly normal, there is mild tricuspid regurgitation, tricuspid regurgitation jet velocity is inadequate for calculation of the right ventricular systolic pressure. Pulmonic Valve Pulmonic valve is poorly visualized. Great Vessels Aortic root is normal size. Pericardium No significant pericardial effusion noted. Conclusion 1. Mildly enlarged left atrium, normal left ventricular size, mild concentric left ventricular hypertrophy, visually estimated ejection fraction 55% with no regional wall motion abnormality, diastolic parameters are inconclusive. 2. Mild aortic, mild mitral and tricuspid regurgitation. 3. No significant pericardial effusion noted. Electronically signed by : Gurvinder Maravilla, 03/25/2020 19:53:24
--- NOTE | 2020-03-25 09:11 | HMH.ACPN2 ---
<Abbie Molina - Last Filed: 03/25/20 09:11> Internal Medicine - PN: Subj *Date: 03/25/20 *Time: 07:40 Interval history: She is resting quietly in bed this morning. She ate well and rested well overnight. She does report some headache and nausea currently. She continues with SOB, increased with exertion, which she feels has improved. Exam Vital signs and Labs for Last 24 Hours: Temp Pulse Resp BP Pulse Ox 97.7 F 78 18 131/76 91 L 03/25/20 07:43 03/25/20 07:43 03/25/20 08:07 03/25/20 07:43 03/25/20 07:43 I & O for Last 24 hours: Intake & Output 03/22/20 03/23/20 03/24/20 03/25/20 11:59 11:59 11:59 11:59 Intake Total 600 / 600 1280 / 1280 2019 Balance 600 / 600 1280 / 1280 2019 Weight 133 lb 5 oz 134 lb 135 lb 4.016 oz Microbiology Reports for the Last 24 Hours: Microbiology 03/22/20 20:54 Blood Blood Culture - Preliminary NO GROWTH AFTER 48 HOURS 03/22/20 20:54 Blood Blood Culture - Preliminary NO GROWTH AFTER 48 HOURS 03/23/20 18:20 Sputum - Expectorated Sputum Gram Stain - Final 03/23/20 18:20 Sputum - Expectorated Sputum Sputum Culture - Preliminary - Constitutional no acute distress - *Routine HEENT Exam Head: Present: normocephalic ENT: Present: mucous membranes moist - *Routine Respiratory Exam Absent: rales Comments: generally diminished with rhonchi and wheezes throughout L > R - *Routine Cardiovascular Exam Present: RRR - *Routine Abdominal Exam Present: soft, normoactive bowel sounds. Absent: tenderness, distended, guarding, firm, rigid - *Routine Extremities Exam Present: full ROM, pulses intact. Absent: edema, calf tenderness - *Routine Neurological Exam Present: alert, oriented X3, moving all extremities, normal speech Assessment and Plan (1) Chronic obstructive pulmonary disease with acute exacerbation Status: Acute Category: Medical Code(s): J44.1 - Chronic obstructive pulmonary disease with (acute) exacerbation (2) Obstructive sleep apnea Status: Acute Category: Medical Code(s): G47.33 - Obstructive sleep apnea (adult) (pediatric) (3) Community acquired pneumonia Status: Acute Category: Medical Code(s): J18.9 - Pneumonia, unspecified organism (4) Pulmonary edema Status: Acute Category: Medical Code(s): J81.1 - Chronic pulmonary edema (5) Cardiomegaly Status: Acute Category: Medical Code(s): I51.7 - Cardiomegaly (6) Tobacco abuse disorder Status: Acute Category: Medical Code(s): Z72.0 - Tobacco use - Assessment and plan all Dx Assessment and Plan for all problems:: Cardiology note seen and appreciated. Further per Dr. Crandall. <Jeff Crandall - Last Filed: 03/25/20 10:11> Internal Medicine - PN: Subj *Date: 03/25/20 *Time: 10:08 Exam Vital signs and Labs for Last 24 Hours: Temp Pulse Resp BP Pulse Ox 97.7 F 80 18 131/76 91 L 03/25/20 07:43 03/25/20 08:00 03/25/20 08:07 03/25/20 07:43 03/25/20 07:43 I & O for Last 24 hours: Intake & Output 03/22/20 03/23/20 03/24/20 03/25/20 11:59 11:59 11:59 11:59 Intake Total 600 / 600 1280 / 1280 2019 Balance 600 / 600 1280 / 1280 2019 Weight 133 lb 5 oz 134 lb 135 lb 4.016 oz Microbiology Reports for the Last 24 Hours: Microbiology 03/22/20 20:54 Blood Blood Culture - Preliminary NO GROWTH AFTER 48 HOURS 03/22/20 20:54 Blood Blood Culture - Preliminary NO GROWTH AFTER 48 HOURS 03/23/20 18:20 Sputum - Expectorated Sputum Gram Stain - Final 03/23/20 18:20 Sputum - Expectorated Sputum Sputum Culture - Preliminary Assessment and Plan (1) Chronic obstructive pulmonary disease with acute exacerbation Status: Acute Category: Medical Code(s): J44.1 - Chronic obstructive pulmonary disease with (acute) exacerbation (2) Obstru
--- NOTE | 2020-03-25 15:12 | PC.NURSE ---
PT HAS SLEPT AT MULTIPLE INTERVALS T/O SHIFT, PT HAS BEEN MEDICATED WITH COUGH MEDICINE *1, PT NOTED TO BE ASLEEP FOLLOWING ADMIN, PT CURRENTLY ON 2L NC FOR O2 SUPPORT WITH O2 SAT >93%, PT DENIES SOA BUT HAS BEEN NOTED TO DESAT TO MID 80'S WHEN NC IS REMOVED, PT HAS AMBULATED TO RR*1 THIS SHIFT, TOLERATED WELL, PT MENTIONED WANTING A CIGARETTE EARLIER IN SHIFT, THIS NURSE OFFERED TO CALL MD ABOUT NICOTINE PATCH BUT PT REFUSED, NO NEEDS AT THIS TIME, WILL CONTINUE TO MONITOR.
--- NOTE | 2020-03-25 19:14 | PC.NURSE ---
report given to maria de jesus
--- NOTE | 2020-03-25 23:54 | PC.NURSE ---
Pt left the floor at 2354 with daughter via wheelchair.
[2020-03-26] VITALS (8 sets, daily range): BP systolic 111–144; BP diastolic 77–79; PULSE 60–98; RESP 16–19; TEMP 36.7–36.8; O2SAT 82–94; BMI 26.1
--- NOTE | 2020-03-26 00:32 | PC.NURSE ---
Pt came back to the floor at 0030 with daughter via wheelchair. Pt RA sat was 79%. 2L NC reapplied
--- NOTE | 2020-03-26 02:33 | PC.NURSE ---
Addendum entered by Ana Rosa Tong RN 03/26/20 02:48: Pt back to floor at 0247 with daughter via wheelchair Original Note: Pt left the floor without notifying staff with daughter via wheelchair at 0228
--- NOTE | 2020-03-26 04:20 | PC.NURSE ---
Pt slept at the beginning of shift but has been awake t/o the night. Pt has left the floor x2 with her daughter via wheelchair. Pt is A&Ox4. Lung sounds are diminished t/o with expiratory wheezes scattered t/o. Pt has had to have between 2-3 L NC this shift. Pt does desat when not receiving supplemental o2 or when pt is moving around in her room, lowest this shift has been 78%. Currently pt is on 3LNC and o2 sat is 90%. Pt did c/o nasal dryness and irritation this shift so humidification was added to supplemental o2 this shift. Pt received a shower this shift and was able to tolerate independently. IS brought to pt's room this shift. At best pt can reach 1250 on IS. Daughter remains at bedside. No other acute changes or complaints at this time. Call light is within reach. Will continue to monitor.
--- NOTE | 2020-03-26 07:23 | HMH.PNCARD ---
Subjective Date: 03/26/20 Time: 07:23 Principal diagnosis: Pneumonia, mild CHF Interval history: 49-year-old white female in bed in no acute distress. She is sleeping at about a 45 degree angle with 2 pillows underneath. Patient is still wearing oxygen. She attempted to wear her CPAP last evening but when I was unable to use it for very long. She is waiting on some additional equipment/information from [employer]. Patient tolerated the addition of irbesartan and Lasix yesterday. Morning labs are pending. Exam Vital signs and Labs for Last 24 Hours: Temp Pulse Resp BP Pulse Ox 98.2 F 98 H 16 127/78 84 L 03/26/20 04:00 03/26/20 06:19 03/26/20 04:00 03/26/20 04:00 03/26/20 06:19 I & O for Last 24 hours: Intake & Output 03/23/20 03/24/20 03/25/20 03/26/20 11:59 11:59 11:59 11:59 Intake Total 600 / 600 1280 / 1280 2019 300 / 300 Balance 600 / 600 1280 / 1280 2019 300 / 300 Weight 133 lb 5 oz 134 lb 135 lb 4.016 oz 133 lb 1 oz Microbiology Reports for the Last 24 Hours: Microbiology 03/23/20 18:20 Sputum - Expectorated Sputum Gram Stain - Final 03/23/20 18:20 Sputum - Expectorated Sputum Sputum Culture - Preliminary - *Routine HEENT Exam Head: Present: normocephalic Eye: Present: EOMI, PERRL ENT: Present: mucous membranes moist - *Routine Respiratory Exam Present: diminished air movement - *Routine Cardiovascular Exam Present: RRR Comments: Mildly tachycardic with rate between 100 and 110 bpm this morning - *Routine Extremities Exam Absent: cyanosis, clubbing, edema - *Routine Neurological Exam Present: alert, oriented X3 Progress Note: A&P (1) Chronic obstructive pulmonary disease with acute exacerbation Status: Acute (2) Obstructive sleep apnea Status: Acute (3) Community acquired pneumonia Status: Acute (4) Pulmonary edema Status: Acute (5) Cardiomegaly Status: Acute (6) Tobacco abuse disorder Status: Acute Assessment and Plan for All Diagnoses:: 1. Pneumonia, on antibiotic therapy 2. Acute exacerbation of COPD, per Dr. Potts 3. Hypertension with hypertensive heart disease, restarted ARB therapy with Avapro 75 mg daily 4. Mild congestive heart failure, recommend Lasix 40 mg p.o. daily as needed weight gain or shortness of breath at home 5. Tobacco use, nicotine patch is in place Patient could be discharged home from a cardiology standpoint when medically stable per PCP. Home medication recommendations: Avapro 75 mg daily Lasix 40 mg daily as needed swelling, weight gain or shortness of breath Follow-up in our office in 2 weeks.
[2020-03-26 07:56] LABS: Chloride 95 mmol/L (98-107); Sodium 141 mmol/L (136-145)
[2020-03-26 07:57] LABS: Potassium 3.8 mmoL/L (3.5-5.1)
[2020-03-26 07:59] LABS: Blood Urea Nitrogen 11 mg/dl (7-17); Creatinine Clearance Estimated 81 mL/min (50-200); Estimated Glomerular Filt Rate 76 ml/min (>60); GFR (African American) 92 ML/MIN (>60)
[2020-03-26 08:00] LABS: Calcium 8.8 mg/dl (8.4-10.2); Glucose 110 mg/dl (74-100)
--- NOTE | 2020-03-26 08:09 | HMH.ACPN2 ---
<Tabatha Nayak - Last Filed: 03/26/20 08:09> Internal Medicine - PN: Subj *Date: 03/26/20 *Time: 08:09 Interval history: Patient states she does not feel well today. She does say that she slept some during the night. She is not eating well. Her daughter is eating her breakfast this morning. Her daughter stays with her throughout the night and takes her off the floor possibly to smoke. Nursing notes she has been out a couple of times during the night. She is voiding QS. Bowels have not moved in a couple of days but she is not eating. She ambulates without difficulty but her O2 sats do drop without her oxygen. Exam Vital signs and Labs for Last 24 Hours: Temp Pulse Resp BP Pulse Ox 98.1 F 84 19 144/77 H 88 L 03/26/20 07:48 03/26/20 07:48 03/26/20 07:48 03/26/20 07:48 03/26/20 07:48 I & O for Last 24 hours: Intake & Output 03/23/20 03/24/20 03/25/20 03/26/20 11:59 11:59 11:59 11:59 Intake Total 600 / 600 1280 / 1280 2019 660 / 660 Balance 600 / 600 1280 / 1280 2019 660 / 660 Weight 133 lb 5 oz 134 lb 135 lb 4.016 oz 133 lb 1 oz Microbiology Reports for the Last 24 Hours: Microbiology 03/23/20 18:20 Sputum - Expectorated Sputum Gram Stain - Final 03/23/20 18:20 Sputum - Expectorated Sputum Sputum Culture - Preliminary - Constitutional no acute distress Comments: Sitting up in the bed. Her daughter is at bedside. - *Routine Respiratory Exam Present: crackles (Scattered throughout anteriorly and posteriorly) - *Routine Cardiovascular Exam Present: RRR - *Routine Abdominal Exam Present: soft, normoactive bowel sounds. Absent: tenderness - *Routine Extremities Exam Absent: edema, calf tenderness - *Routine Neurological Exam Present: alert, oriented X3 Assessment and Plan (1) Chronic obstructive pulmonary disease with acute exacerbation Status: Acute Category: Medical Code(s): J44.1 - Chronic obstructive pulmonary disease with (acute) exacerbation (2) Obstructive sleep apnea Status: Acute Category: Medical Code(s): G47.33 - Obstructive sleep apnea (adult) (pediatric) (3) Community acquired pneumonia Status: Acute Category: Medical Code(s): J18.9 - Pneumonia, unspecified organism (4) Pulmonary edema Status: Acute Category: Medical Code(s): J81.1 - Chronic pulmonary edema (5) Cardiomegaly Status: Acute Category: Medical Code(s): I51.7 - Cardiomegaly (6) Tobacco abuse disorder Status: Acute Category: Medical Code(s): Z72.0 - Tobacco use (7) Noncompliance with treatment plan Status: Acute Category: Medical Code(s): Z91.11 - Patient's noncompliance with dietary regimen - Assessment and plan all Dx Assessment and Plan for all problems:: Patient continues to go outside and audibly smoke despite direction by staff not to do so. She is probably ready to go home. She does use oxygen at home as needed. <Jeff Crandall - Last Filed: 03/26/20 12:17> Internal Medicine - PN: Subj *Date: 03/26/20 *Time: 12:16 Exam Vital signs and Labs for Last 24 Hours: Temp Pulse Resp BP Pulse Ox 98.1 F 90 19 144/77 H 82 L 03/26/20 07:48 03/26/20 08:00 03/26/20 07:48 03/26/20 07:48 03/26/20 10:28 Laboratory Results - last 24 hr 03/26/20 07:42: Sodium 141, Potassium 3.8, Chloride 95 L, Carbon Dioxide 41 H*, Anion Gap 8.8, BUN 11, Creatinine 0.80, Estimated Creat Clear 81, Estimated GFR 76, Est GFR ( Amer) 92, Glucose 110 H, Calcium 8.8 I & O for Last 24 hours: Intake & Output 03/24/20 03/25/20 03/26/20 03/27/20 11:59 11:59 11:59 11:59 Intake Total 1280 / 1280 2019 660 / 660 Balance 1280 / 1280 2019 660 / 660 Weight 134 lb 135 lb 4.016 oz 133 lb 1 oz Microbiology Reports for the Last 24 Hours: Microbiology 03/23/20 18:20 Sputum - Expectorated Sputum Gram Stain - Final 03/23/20 18:20 Sputum - Expectorated Sputum Sputum Culture - Nancy
--- NOTE | 2020-03-26 08:47 | HMH.ACPN ---
Internal Medicine - PN: Subj *Date: 03/26/20 *Time: 08:47 Exam Vital signs and Labs for Last 24 Hours: Temp Pulse Resp BP Pulse Ox 98.1 F 84 19 144/77 H 88 L 03/26/20 07:48 03/26/20 07:48 03/26/20 07:48 03/26/20 07:48 03/26/20 07:48 I & O for Last 24 hours: Intake & Output 03/23/20 03/24/20 03/25/20 03/26/20 23:59 23:59 23:59 23:59 Intake Total 1080 / 1320 2340 / 2340 780 / 780 360 / 360 Balance 1080 / 1320 2340 / 2340 780 / 780 360 / 360 Weight 60.47 kg 60.781 kg 61.349 kg 60.356 kg Microbiology Reports for the Last 24 Hours: Microbiology 03/23/20 18:20 Sputum - Expectorated Sputum Gram Stain - Final 03/23/20 18:20 Sputum - Expectorated Sputum Sputum Culture - Final Normal Respiratory Harini Assessment and Plan (1) Chronic obstructive pulmonary disease with acute exacerbation Status: Acute Category: Medical Code(s): J44.1 - Chronic obstructive pulmonary disease with (acute) exacerbation (2) Obstructive sleep apnea Status: Acute Category: Medical Code(s): G47.33 - Obstructive sleep apnea (adult) (pediatric) (3) Community acquired pneumonia Status: Acute Category: Medical Code(s): J18.9 - Pneumonia, unspecified organism (4) Pulmonary edema Status: Acute Category: Medical Code(s): J81.1 - Chronic pulmonary edema (5) Cardiomegaly Status: Acute Category: Medical Code(s): I51.7 - Cardiomegaly (6) Tobacco abuse disorder Status: Acute Category: Medical Code(s): Z72.0 - Tobacco use (7) Noncompliance with treatment plan Status: Acute Category: Medical Code(s): Z91.11 - Patient's noncompliance with dietary regimen The patient's infection will respond to the chosen ABx?: Yes Is the patient receiving the right drug, dose, and route?: Yes Could a more targeted ABx be ordered?: No (NO GROWTH IN CURRENT CULTURES.)
--- NOTE | 2020-03-26 08:53 | SW/DCPLANNER ---
MADE ROUNDS WITH DR BOCANEGRA THIS MORNING, HE STATED PATIENT IS CLOSE TO BEING READY TO DISCHARGE BUT WAITING ON CULTURES TO ENSURE PATIENT IS ON THE RIGHT ANTIBIOTIC... PATIENT CONTINUE TO SMOKE AND WAS OUTSIDE WITH DAUGHTER SEVERAL TIMES LAST EVENING AND THEN REQUIRED 02 R/T SHORTNESS OF BREATH... PATIENT MAY BE ABLE TO DISCHARGE LATER IN THE DAY IF CULTURES ARE BACK...
[2020-03-26 08:56] LABS: Anion Gap 8.8 mEq/L (5-15); Carbon Dioxide 41 mmol/L (22.0-30.0)
--- NOTE | 2020-03-26 09:02 | PC.NURSE ---
received call from lab with CO2 level of 41. Notified Dr. Crandall f2f as he is still in dictation room. He verbalized understanding. No new orders received @ this time.
--- NOTE | 2020-03-26 10:27 | PC.NURSE ---
pt just arrived back to floor from being downstairs via wheelchair. She was not wearing O2. Her O2 sat on RA is 82%.
--- NOTE | 2020-03-26 13:00 | PC.NURSE ---
Dr. Tafoya agreed to see the patient in the Pulmonology Clinic once they have seen PCP on 04/12/20 approx.
--- NOTE | 2020-03-28 10:47 | HMH.DCSUM ---
General - General Admission date:: 03/22/20 <Jeff Crandall - 03/30/20 09:03> 03/22/20 <Tabatha Nayak - 03/28/20 11:34> HPI HPI: Ms. Chavez is a 49-year-old white female with a longstanding history of oxygen dependent COPD, obstructive sleep apnea who follows with a nurse practitioner in [place] for primary care. She states that she has been a bit more short of breath for the past month but acutely worse over the past week. Her primary care provider ordered an outpatient chest x-ray yesterday which was concerning for a possible right lower lobe infiltrate and mild congestive heart failure. She had been started on Levaquin and Medrol Dosepak as an outpatient but began noticing her O2 sats at home dropping into the 40s and 50s at night. She therefore presented to the emergency room. Work-up in the emergency room showed a normal white count. Her chest x-ray continued to show mild CHF, cardiomegaly, and atelectasis versus infiltrate in the right lower lobe. COVID testing negative. BNP was low. She was admitted for treatment of presumptive community-acquired pneumonia and exacerbation of her COPD. <Tabatha Nayak - 03/28/20 11:34> Hospital Course Hospital Course: Patient was started on Zithromax and Augmentin on admission. She received DuoNeb treatments as well as her home medicines. She was given IV Lasix daily and a dose of methylprednisolone. She never really felt well. She had a cough and was short of breath. Her O2 sats did drop without her oxygen. Despite nursing education and instruction patient did leave the floor and go out of the building several times daily. This was without her oxygen. Her O2 sats were found to be in the 70s and 80s with her return. She did have a history of hypertension as well and was seen by cardiology for her CHF. With assessment by cardiology she was felt to be short of breath mainly due to her acute exacerbation of COPD with pneumonia and mild CHF. She was started on a low-dose of diuretics for diuresis and to continue with as needed Lasix when at home. She did have normal troponins with no acute EKG changes. Echocardiogram showed mild diastolic dysfunction. Further cardiac testing was not recommended until after her recovery from pneumonia. She was started on irbesartan in light of her diastolic dysfunction. Beta-blockers were not considered due to her exacerbation of COPD and mild CHF. She had a periodic headache and nausea. Patient continued to insist on going out to the parking lot with her family likely to smoke. Cough became less productive and sputum was not as dark. Cultures eventually were reported as negative. On 03/26/2020 patient stated she did not feel well. Clinically she appeared improved. She stated she slept. Nursing noted that she was out twice during the night with her daughter without oxygen most likey to smoke. She was unable to use her CPAP due to multiple issues. She planned to discuss these with [facility]. She did ambulate without difficulty but her O2 sats continued to drop without oxygen. On this date patient was stable to go home. She was discharged home in stable and satisfactory condition. She will finish her course of antibiotics and cardiology recommended prn Lasix. She will have a follow-up with pulmonology and with PCP, Katina Lovelace APRN. She was instructed on a low-sodium diet. Patient was not interested in smoking cessation. She was offered repeatedly a nicotine patch which she never utilized. <Tabatha Nayak - 03/28/20 11:34> Objective Vital signs: Temp Pulse Resp BP Pulse Ox 98.3 F 61 19 126/77 91 L 03/26/20 12:00 03/26/20 13:20 03/26/20 12:00 03/26/20 12:00 03/26/20 13:20 <Jeff Crandall - 03/30/20 09:03> Temp Pulse Resp BP Pulse Ox 98.3 F 61 19 126/77 91 L 03/26/20 12:00 03/26/20 13:20 03/26/20 12:00 03/26/20 12:00 03/26/20 13:20 <Tabatha Nayak - 03/28/20 11:34> N
== END 2020-03-26 14:04 | disposition home or self-care (01) | DRG 190 ==
LOC: ER 22:11 → 2ND 23:06
PROVIDERS: Physician Assistant; Admitting Provider Family Medicine; Emergency Provider Emergency Medicine; PCP Nurse Practitioner; Visit Provider Family Medicine
DX: J44.1 Chronic obstructive pulmonary disease with (acute) exacerbation (principal); J18.9 Pneumonia, unspecified organism; I50.30 Unspecified diastolic (congestive) heart failure; J81.1 Chronic pulmonary edema; Z99.81 Dependence on supplemental oxygen; Z72.0 Tobacco use; G47.33 Obstructive sleep apnea (adult) (pediatric); Z91.19 Patient's noncompliance with other medical treatment and regimen; Z79.52 Long term (current) use of systemic steroids; Z79.899 Other long term (current) drug therapy; I11.0 Hypertensive heart disease with heart failure
CPT/HCPCS: 36415; 71046; 80048; 83605; 83880; 84484; 85025; 86328; 87040; 87070; 87205; 93306; 94640; 94761; 99284; J0456; J2405

== ENCOUNTER 2020-08-20 14:52 | Emergency (ER) | payer MEDICAID, SELFPAY ==
[2020-08-20] VITALS (12 sets, daily range): BP systolic 95–105; BP diastolic 64–71; PULSE 77–88; RESP 19–20; TEMP 36.9; O2SAT 72–96; BMI 26.4
--- NOTE | 2020-08-20 15:04 | HMH.EDSOB ---
ED Disposition Clinical Impression: Other medical devices associated with adverse incidents, Hypoxia Disposition: Home, Self-Care Condition on Discharge: Good Referrals: PCP,No [Primary Care Provider] - 3 days Time of Disposition: 16:21 - Critical Care Critical Care Time: No Attestation: On , the high probability of a clinically significant, sudden or life threatening deterioration of the following system(s) required my full and direct attention, intervention and personal management. The time I documented below is in addition to time spent performing reported procedures but includes the following listed in this critical care notation. Medical Decision Making - Medical Records Medical records reviewed: Yes: I reviewed the patient's medical records. - Shaheed Inquiry Pt receiving controlled substance: No Vital Signs: 08/20/20 14:53 08/20/20 15:05 08/20/20 15:15 Temperature 98.5 F Temperature Source Oral Pulse Rate 87 84 Pulse Rate [Left Radial] 88 Respiratory Rate 20 Blood Pressure Blood Pressure [Right Arm] 95/64 L Blood Pressure Mean Blood Pressure Mean [Right Arm] 74 Blood Pressure Source [Right Arm] Automatic Cuff Blood Pressure Position [Right Arm] Sitting 02 Sat by Pulse Oximetry 95 89 L 90 L Oxygen Delivery Method Nasal Cannula Oxygen Flow Rate (LPM) 2 08/20/20 15:17 08/20/20 15:18 08/20/20 15:30 Temperature Temperature Source Pulse Rate 85 82 Pulse Rate [Left Radial] Respiratory Rate Blood Pressure 97/69 L Blood Pressure [Right Arm] Blood Pressure Mean 78 Blood Pressure Mean [Right Arm] Blood Pressure Source [Right Arm] Blood Pressure Position [Right Arm] 02 Sat by Pulse Oximetry 90 L 92 L Oxygen Delivery Method Oxygen Flow Rate (LPM) - Lab Data Lab results reviewed: Yes: I reviewed the patient's lab results. Lab Results 08/20/20 14:54: WBC 5.2, RBC 5.20, Hgb 16.3 H, Hct 51.7 H, MCV 99.4 H, MCH 31.3 H, MCHC 31.5 L, RDW 12.7, Plt Count 149, MPV 9.3, Neut % (Auto) 57.0, Lymph % (Auto) 32.5, [place] % (Auto) 6.3, Eos % (Auto) 3.0, Baso % (Auto) 1.2, Neut # (Auto) 3.0, Lymph # (Auto) 1.7, [place] # (Auto) 0.3, Eos # (Auto) 0.2, Baso # (Auto) 0.1 08/20/20 14:54: Sodium 141, Potassium 3.5, Chloride 97 L, Carbon Dioxide 39 H, Anion Gap 8.5, BUN 5 L, Creatinine 0.80, Estimated Creat Clear 84, Estimated GFR 76, Est GFR ( Amer) 92, Glucose 92, Calcium 8.8, Troponin I < 0.01 08/20/20 14:54: NT-Pro-B Natriuret Pep 46.5 Result diagrams: 08/20/20 14:54 08/20/20 14:54 Orders (Tests/Meds): ORDERS Category Date Time Status Troponin I Q3H Lab 08/20/20 18:15 Ordered Troponin I Q3H Lab 08/20/20 21:15 Ordered - Radiology Data #1 Image(s): Chest Image Reviewed: Yes I reviewed the patient's radiology results, Yes I reviewed the patient's radiology image, Yes I have reviewed radiologist's interpretation Preliminary Findings: Abnormal Right lower lobe infiltrate versus developing nodule. - ECG Data Tracing #1 Normal sinus rhythm, 81 bpm, no ST elevation or depression, no ectopy, normal intervals. ECG initial impression date: 08/20/20 ECG initial impression time: 15:28 Medical Decision Narrative: 50yo F evaluated emergency department with concern for pneumonia from her PCPs office today. Patient is in no acute distress on initial evaluation. Patient is afebrile, satting 94% on her 2 L nasal cannula. Chest x-ray, EKG, CBC, BMP, troponin and BNP have been collected. Differential diagnosis includes but not limited to: ACS/[place], CHF exacerbation, COPD exacerbation, pneumonia, pneumothorax, viral process. Metabolic panel and CBC are unremarkable. Chest x-ray is read as possible right lower lobe infiltrate versus developing nodule. The patient has no change in her chronic cough, has no increased sputum production, has no fever, has no increased supplemental O2 need. The patient does not meet criteria for CHF exacerbation,
--- NOTE | 2020-08-20 15:05 | XR_ITS ---
PROCEDURE: XR CHEST PORTABLE CLINICAL HISTORY: sob Shortness of breath COMPARISON: CR XR CHEST 2V from 02/07/2019 CR XR CHEST 2V from 03/21/2020 CR XR CHEST 2V from 03/22/2020 FINDINGS: The cardiomediastinal silhouette and pulmonary vascularity are within normal limits. There is chronic coarsening bronchovascular markings consistent with smoking related lung disease. Patchy density is present in the right lung base may be due to an area of atelectasis or infiltrate. Suggest following till clear in this patient with smoking history. No acute bony abnormalities. IMPRESSION: Chronic changes with parenchymal opacity in the right lung base which may be due to an area of atelectasis or infiltrate. Suggest following till clear to confirm resolution as developing nodule is not excluded. Dictated by: Bharath West MD 08/20/2020 16:12 Bharath West MD in [place] 08/20/2020 16:12
--- NOTE | 2020-08-20 15:24 | ECG_ITS ---
APPROVED REPORT Exam: Resting ECG HR:81 bpm ECG Measurements Heart Rate 81 AXES ND 142 P 56 QRSd 70 QRS 98 QT 402 T 46 QTc 466 Conclusion Normal sinus rhythm Rightward axis Borderline ECG Electronically signed by : Johnie Briones, 08/20/2020 19:34:35
[2020-08-20 15:54] LABS: Basophils # 0.1 K/mm3 (0-0.2); Basophils % 1.2 % (0.1-2.0); Eosinophils # 0.2 K/mm3 (0.0-0.4); Hematocrit 51.7 % (37.0-47.0); Hemoglobin 16.3 g/dL (12.2-16.2); Lymphocytes # 1.7 K/mm3 (0.7-4.5); Lymphocytes % 32.5 % (10-50); Mean Corpuscular HGB Conc 31.5 g/dL (31.8-35.4); Mean Corpuscular Hemoglobin 31.3 pg (27.0-31.2); Mean Corpuscular Volume 99.4 fl (81-99); Mean Platelet Volume 9.3 fl (7.4-10.4); Monocytes # 0.3 K/mm3 (0.1-1.0); Monocytes % 6.3 % (1.7-9.3); Platelet Count 149 K/mm3 (142-424); Red Cell Distribution Width 12.7 % (11.5-17.5); White Blood Count 5.2 K/mm3 (4.8-10.8)
[2020-08-20 16:01] LABS: Blood Urea Nitrogen 5 mg/dl (7-17); Calcium 8.8 mg/dl (8.4-10.2); Chloride 97 mmol/L (98-107); Creatinine Clearance Estimated 84 mL/min (50-200); Estimated Glomerular Filt Rate 76 ml/min (>60); GFR (African American) 92 ML/MIN (>60); Glucose 92 mg/dl (74-100); Potassium 3.5 mmoL/L (3.5-5.1); Sodium 141 mmol/L (136-145)
[2020-08-20 16:09] LABS: Anion Gap 8.5 mEq/L (5-15); Carbon Dioxide 39 mmol/L (22.0-30.0)
[2020-08-20 16:11] LABS: NT Pro Brain Natriuretic Pep. 46.5 pg/mL (0-125)
[2020-08-20 16:15] LABS: Troponin I < 0.01 ng/ml (0.00-0.034)
== END 2020-08-20 16:30 | disposition home or self-care (01) ==
PROVIDERS: Emergency Provider Family Medicine
DX: R09.02 Hypoxemia (principal); J18.9 Pneumonia, unspecified organism; J44.9 Chronic obstructive pulmonary disease, unspecified; I10 Essential (primary) hypertension; F17.210 Nicotine dependence, cigarettes, uncomplicated
CPT/HCPCS: 71045; 80048; 83880; 84484; 85025; 93005; 99282

== ENCOUNTER 2020-08-29 19:50 | Emergency (ER) | payer MEDICAID, SELFPAY ==
[2020-08-29 20:06] VITALS: BP 116/77; PULSE 82; RESP 23; TEMP 36.9; O2SAT 94; BMI 28.1
--- NOTE | 2020-08-29 20:13 | ECG_ITS ---
APPROVED REPORT Exam: Resting ECG HR:78 bpm ECG Measurements Heart Rate 78 AXES AR 146 P 71 QRSd 82 QRS 99 QT 400 T 53 QTc 456 Conclusion Normal sinus rhythm Rightward axis Borderline ECG Electronically signed by : Johnie Briones, 08/30/2020 18:11:55
--- NOTE | 2020-08-29 20:13 | XR_ITS ---
PROCEDURE: XR CHEST 2V CLINICAL HISTORY: shortness of air COMPARISON: CR XR CHEST 2V from 03/21/2020 CR XR CHEST 2V from 03/22/2020 CR XR CHEST PORTABLE from 08/20/2020 FINDINGS: There is borderline cardiomegaly. The pulmonary vessels are somewhat prominent suggesting mild CHF. There is a small right pleural effusion. No obvious interstitial or alveolar edema.. The lungs are clear without infiltrates, suspicious nodules, or pleural effusions. No acute bony abnormalities. IMPRESSION: Mild CHF with small right effusion Dictated by: Bharath West MD 08/29/2020 21:05 Bharath West MD in [place] 08/29/2020 21:05
[2020-08-29 20:15] VITALS: PULSE 86; O2SAT 91
[2020-08-29 20:56] LABS: Basophils # 0.1 K/mm3 (0-0.2); Basophils % 0.9 % (0.1-2.0); Eosinophils # 0.2 K/mm3 (0.0-0.4); Eosinophils % 2.7 % (0.1-12.0); Hemoglobin 15.8 g/dL (12.2-16.2); Lymphocytes # 1.8 K/mm3 (0.7-4.5); Lymphocytes % 31.1 % (10-50); Mean Corpuscular Hemoglobin 30.9 pg (27.0-31.2); Mean Corpuscular Volume 99.4 fl (81-99); Mean Platelet Volume 9.7 fl (7.4-10.4); Monocytes # 0.4 K/mm3 (0.1-1.0); Monocytes % 6.8 % (1.7-9.3); Neutrophils # 3.4 K/mm3 (1.8-7.8); Neutrophils % 58.5 % (37.0-80.0); Platelet Count 169 K/mm3 (142-424); Red Blood Count 5.12 M/mm3 (4.20-5.40); Red Cell Distribution Width 12.9 % (11.5-17.5); White Blood Count 5.8 K/mm3 (4.8-10.8)
[2020-08-29 20:57] VITALS: PULSE 85; O2SAT 84
[2020-08-29 21:00] VITALS: BP 128/70; PULSE 82; O2SAT 93
--- NOTE | 2020-08-29 21:01 | HMH.EDSOB ---
ED Disposition Clinical Impression: Acute exacerbation of chronic obstructive airways disease, Tobacco abuse disorder Disposition: Home, Self-Care Condition on Discharge: Fair Instructions: DI for Chronic Obstructive Pulmonary Disease Additional Instructions: see pcp for follow up and pul medicine Prescriptions: predniSONE [Prednisone 20mg Tab] 20 mg PO BID #10 tab Transmission Status: Pending to [facility] Benzonatate [Tessalon Perle 100mg Cap] 100 mg PO TID #30 cap Transmission Status: Pending to [facility] Azithromycin [Zithromax 250mg tab] 250 mg PO DIRECTED #6 tab Transmission Status: Pending to [facility] Referrals: Galina Mo APRN [Primary Care Provider] - - Critical Care Critical Care Time: No ( ) Attestation: On 08/29/20, the high probability of a clinically significant, sudden or life threatening deterioration of the following system(s) required my full and direct attention, intervention and personal management. The time I documented below is in addition to time spent performing reported procedures but includes the following listed in this critical care notation. Medical Decision Making - Medical Records Medical records reviewed: Yes: I reviewed the patient's medical records. - Shaheed Inquiry Pt receiving controlled substance: No Vital Signs: 08/29/20 20:06 08/29/20 20:15 Temperature 98.5 F Temperature Source Oral Pulse Rate 86 Pulse Rate [Right Brachial] 82 Respiratory Rate 23 Blood Pressure [Right Arm] 116/77 Blood Pressure Mean [Right Arm] 90 Blood Pressure Source [Right Arm] Automatic Cuff Blood Pressure Position [Right Arm] Sitting 02 Sat by Pulse Oximetry 94 L 91 L Oxygen Delivery Method Room Air - Lab Data Lab results reviewed: Yes: I reviewed the patient's lab results. Lab Results 08/29/20 20:35: WBC 5.8, RBC 5.12, Hgb 15.8, Hct 51.0 H, MCV 99.4 H, MCH 30.9, MCHC 31.0 L, RDW 12.9, Plt Count 169, MPV 9.7, Neut % (Auto) 58.5, Lymph % (Auto) 31.1, [place] % (Auto) 6.8, Eos % (Auto) 2.7, Baso % (Auto) 0.9, Neut # (Auto) 3.4, Lymph # (Auto) 1.8, [place] # (Auto) 0.4, Eos # (Auto) 0.2, Baso # (Auto) 0.1 08/29/20 20:35: Sodium 142, Potassium 3.7, Chloride 96 L, Carbon Dioxide 40 H, Anion Gap 9.7, BUN 8, Creatinine 0.70, Estimated Creat Clear 99, Estimated GFR 89, Est GFR ( Amer) 107, Glucose 98, Calcium 8.5, Troponin I < 0.01, C-Reactive Protein 6.4 H, NT-Pro-B Natriuret Pep 199 H 08/29/20 20:35: Lactate 0.8 08/29/20 20:35: ESR 11 08/29/20 20:35: Total Bilirubin 0.3, Direct Bilirubin 0.1, Conjugated Bilirubin 0.0, Indirect Bilirubin 0.2, Unconjugated Bilirubin 0.3, AST 22, ALT 11 L, Alkaline Phosphatase 59, Total Protein 6.4, Albumin 3.7 08/29/20 20:35: Procalcitonin 1.09 08/29/20 21:17: VBG pH 7.27 L, VBG pCO2 91.6 H, VBG pO2 35.4, VBG HCO3 41.0 H, VBG Total CO2 43.8 H, VBG O2 Saturation 72.8 H, VBG Base Excess 14.1 H Result diagrams: 08/29/20 20:35 08/29/20 20:35 Orders (Tests/Meds): ED MEDICATIONS Generic Name Dose Route Start Last Admin Trade Name Freq PRN Reason Stop Dose Admin Benzonatate 100 mg 08/29/20 23:45 Benzonatate 100mg Capsule PO 09/28/20 23:44 ONCE JAVIER Sodium Chloride 1,000 mls @ 999 mls/hr 08/29/20 22:00 08/29/20 22:16 Sod Chlor 0.9% 1000ml Bag IV 08/29/20 23:00 999 mls/hr .Q1H1M JAVIER Administration Azithromycin 500 mg/ Sodium 250 mls @ 250 mls/hr 08/29/20 23:30 08/29/20 23:53 Chloride IV 09/12/20 23:29 250 mls/hr Q24H JAVIER Administration Protocol Ceftriaxone Sodium 1 gm/ 50 mls @ 100 mls/hr 08/29/20 23:30 08/29/20 23:24 Sodium Chloride IV 09/12/20 23:29 100 mls/hr Q24H JAVIER Administration Protocol Discontinued Medications Generic Name Dose Route Start Last Admin Trade Name Freq PRN Reason Stop Dose Admin Acetaminophen 1,000 mg 08/29/20 22:20 08/29/20 22:20 Acetaminophen 500mg Tab PO 08/29/20 22:21 1,000 mg ONCE ONE Administrat
[2020-08-29 21:02] LABS: Chloride 96 mmol/L (98-107); Potassium 3.7 mmoL/L (3.5-5.1); Sodium 142 mmol/L (136-145)
[2020-08-29 21:05] LABS: Blood Urea Nitrogen 8 mg/dl (7-17); Creatinine Clearance Estimated 99 mL/min (50-200); Estimated Glomerular Filt Rate 89 ml/min (>60); GFR (African American) 107 ML/MIN (>60)
[2020-08-29 21:06] LABS: Calcium 8.5 mg/dl (8.4-10.2); Glucose 98 mg/dl (74-100); Lactic Acid 0.8 mmol/L (0.7-2.1)
[2020-08-29 21:11] LABS: C-Reactive Protein 6.4 mg/L (0-4)
[2020-08-29 21:13] LABS: Anion Gap 9.7 mEq/L (5-15)
[2020-08-29 21:17] LABS: NT Pro Brain Natriuretic Pep. 199 pg/mL (0-125)
[2020-08-29 21:28] LABS: Carbon Dioxide 40 mmol/L (22.0-30.0); Troponin I < 0.01 ng/ml (0.00-0.034)
[2020-08-29 21:32] LABS: Erythrocyte Sedimentation Rate 11 mm/hr (0-20)
--- NOTE | 2020-08-29 21:35 | CT_ITS ---
PROCEDURE: CT ANGIO CHEST CLINCIAL INDICATION: SOA Shortness of breath COMPARISON: No exams were available for comparison TECHNIQUE: IV Contrast: 70ML Isovue 370 Axial images obtained with sagittal and coronal reformats. All CT scans at the facility use one or more dose reduction, viz: automated exposure control, ma/kV adjustment per patient size (including targeted exams where dose is matched to indication, i.e. head), or iterative reconstruction technique. FINDINGS: HEART AND MEDIASTINAL STRUCTURES: No evidence of pulmonary embolus, aortic aneurysm, or aortic dissection.. There is small amount fluid within the pericardium superiorly. There are few small mediastinal nodes. LUNGS AND PLEURAL SPACES: Small area of patchy ground-glass attenuation is present in the right upper lobe centrally image 41 with the small lucency at this region measuring approximately 3 mm and could be due to small area of cavitation. Atelectatic changes are present in the right middle lobe. There is a 4 mm nodule in the right middle lobe image 63 series 3. Small blebs are present. There are atelectatic changes in the lingula. Atelectasis also present in both lower lobes posteriorly.. In the right lung base is a 1.5 cm area of mixed density and could be due to an area of pneumonia and/or atelectatic change. There is some debris or mucous within the right mainstem bronchus raising the question of aspiration.. BONY STRUCTURES: No acute bony abnormalities apparent. UPPER ABDOMEN: Borderline splenomegaly ADDITIONAL FINDINGS: No other significant abnormalities. IMPRESSION: 1. No evidence of pulmonary embolus. 2. Scattered atelectatic changes. Mixed density areas present in the right lung base posteriorly and may be due to an area of infiltrate. There is some debris within the right mainstem bronchus raising the question aspiration. Faint ground-glass opacity is present in the right upper lobe and there is a nonspecific 4 mm nodule in the right middle lobe. Consider follow-up confirm stability. Dictated by: Bharath West MD 08/30/2020 04:31 Bharath West MD in [place] 08/30/2020 04:31
[2020-08-29 21:45] VITALS: PULSE 81; O2SAT 90
[2020-08-29 23:14] LABS: Alanine Aminotransferase 11 U/L (12-78); Alkaline Phosphatase 59 U/L (38-126); Aspartate Amino Transferase 22 U/L (14-36); Bilirubin,Direct 0.1 mg/dl (0.0-0.4); Bilirubin,Indirect 0.2 mg/dL (0.0-0.9); Bilirubin,Total 0.3 mg/dl (0.2-1.3); Bilirubin,Unconjugated 0.3 mg/dL (0.0-1.1)
[2020-08-29 23:15] LABS: Albumin Level 3.7 g/dl (3.5-5.0); Total Protein,Serum 6.4 g/dl (6.3-8.2)
[2020-08-29 23:27] LABS: VBG Base Excess 14.1 mmol/L (-2.4-2.3); VBG Oxygen Saturation 72.8 % (50-70); VBG PH 7.27 mmol/L (7.31-7.41); VBG PO2 35.4 mmol/L (28-40); VBG Total CO2 43.8 mmol/L (23-27)
[2020-08-29 23:33] LABS: VBG PCO2 91.6 mmol/L (35-51)
[2020-08-29 23:33] LABS: Procalcitonin 1.09 ng/mL (0.0-2.0)
[2020-08-30 00:21] VITALS: PULSE 86; O2SAT 91
[2020-08-30 00:25] VITALS: PULSE 91; PULSE 93
[2020-08-30 00:28] VITALS: BP 118/82; PULSE 97; O2SAT 92
[2020-08-30 00:30] VITALS: BP 124/88; PULSE 91; O2SAT 93
[2020-08-30 00:55] VITALS: BP 114/81; PULSE 85; RESP 20; TEMP 36.6; O2SAT 94
--- NOTE | 2020-08-30 00:55 | PC.NURSE ---
Pt using 3LNC while here in ED. Pt uses 2LNC at home as needed.
== END 2020-08-30 00:57 | disposition home or self-care (01) ==
PROVIDERS: Emergency Medicine; Emergency Provider Emergency Medicine; PCP Nurse Practitioner
DX: J44.1 Chronic obstructive pulmonary disease with (acute) exacerbation (principal); I10 Essential (primary) hypertension; Z20.822 Contact with and (suspected) exposure to COVID-19; F17.210 Nicotine dependence, cigarettes, uncomplicated
CPT/HCPCS: 71046; 71275; 80048; 80076; 82803; 83605; 83880; 84145; 84484; 85025; 85651; 86140; 87040; 93005; 96365; 96367; 96375; 99284; J0456; Q9967; U0003

== ENCOUNTER 2021-10-30 15:43 | Emergency (ER) | payer MEDICAID, SELFPAY ==
[2021-10-30] VITALS (15 sets, daily range): BP systolic 124–153; BP diastolic 84–101; PULSE 87–104; RESP 17–27; TEMP 36.8; O2SAT 86–96; BMI 29.7; BMI 28.3
--- NOTE | 2021-10-30 15:53 | HMH.EDUTC ---
[facility] [place] Clinical Impression: Pneumonia Qualifiers: Pneumonia type: due to unspecified organism Laterality: right Lung location: middle lobe of lung Qualified Code(s): J18.9 - Pneumonia, unspecified organism Respiratory failure with hypoxia and hypercapnia Qualifiers: Chronicity: acute on chronic Qualified Code(s): J96.21 - Acute and chronic respiratory failure with hypoxia Disposition: Home, Self-Care Condition on Discharge: Good Instructions: DI for Chronic Obstructive Pulmonary Disease, DI for Pneumonia -- Adult, DI for Hypoxia Additional Instructions: Increase your oxygen at home to 4 L. Use your breathing treatments 4 times a day. Follow-up with your primary care provider next week. Additional instructions for PNEUMONIA: Take antibiotics as prescribed. See your physician as soon as possible for further evaluation. Return immediately if you have an uncontrollable fever greater than 102 degrees, difficulty breathing or shortness of breath, persistent vomiting, or severe chest pain. Prescriptions: Cefdinir [Omnicef 300mg Capsule] 300 mg PO BID #20 cap Transmission Status: Received by [facility] predniSONE [Prednisone 20mg Tab] 20 mg PO BID #10 tab Transmission Status: Received by [facility] Azithromycin [Zithromax 250mg tab] 250 mg PO DAILY #4 tab Transmission Status: Received by [facility] Referrals: Galina Mo APRN [Primary Care Provider] - Medical Decision Making - Medical Records Medical records reviewed: No: I reviewed the patient's medical records. - Shaheed Inquiry Pt receiving controlled substance: No Vital Signs: 10/30/21 16:25 10/30/21 16:26 10/30/21 16:30 Temperature Temperature Source Pulse Rate 94 H 95 H Pulse Rate [Left Radial] 97 H Respiratory Rate 27 H Blood Pressure 132/85 124/86 Blood Pressure [Right Arm] 136/93 H Blood Pressure Mean 105 99 Blood Pressure Mean [Right Arm] 107 Blood Pressure Source Blood Pressure Source [Right Arm] Blood Pressure Position Blood Pressure Position [Right Arm] 02 Sat by Pulse Oximetry 92 L 86 L Oxygen Delivery Method Nasal Cannula Oxygen Flow Rate (LPM) 3.5 10/30/21 16:54 10/30/21 17:00 10/30/21 17:11 Temperature 98.2 F Temperature Source Oral Pulse Rate 91 H Pulse Rate [Left Radial] 96 H 95 H Respiratory Rate 17 Blood Pressure 130/84 Blood Pressure [Right Arm] 124/86 132/85 Blood Pressure Mean 106 Blood Pressure Mean [Right Arm] 98 100 Blood Pressure Source Blood Pressure Source [Right Arm] Automatic Cuff Blood Pressure Position Blood Pressure Position [Right Arm] Sitting 02 Sat by Pulse Oximetry 91 L 92 L Oxygen Delivery Method Nasal Cannula Nasal Cannula Oxygen Flow Rate (LPM) 3.5 5 10/30/21 17:30 10/30/21 18:01 10/30/21 18:16 Temperature Temperature Source Pulse Rate 91 H 99 H Pulse Rate [Left Radial] 87 94 H Respiratory Rate Blood Pressure 134/86 146/90 H Blood Pressure [Right Arm] 134/86 146/90 H Blood Pressure Mean 111 112 Blood Pressure Mean [Right Arm] 102 108 Blood Pressure Source Blood Pressure Source [Right Arm] Automatic Cuff Automatic Cuff Blood Pressure Position Blood Pressure Position [Right Arm] Sitting Sitting 02 Sat by Pulse Oximetry 96 92 L Oxygen Delivery Method Nasal Cannula Nasal Cannula Oxygen Flow Rate (LPM) 3.5 3.5 10/30/21 18:30 10/30/21 18:34 10/30/21 19:00 Temperature Temperature Source Pulse Rate 94 H 94 H 99 H Pulse Rate [Left Radial] Respiratory Rate Blood Pressure 153/101 H 136/98 H 131/85 Blood Pressure [Right Arm] Blood Pressure Mean 118 115 105 Blood Pressure Mean [Right Arm] Blood Pressure Source Blood Pressure Source [Right Arm] Blood Pressure Position Blood Pressure Position [Right Arm] 02 Sat by Pulse Oximetry Oxygen Delivery Method Oxygen Flow Rate (LPM) 10/30/21 19:02 10/30/21 19:25 0
--- NOTE | 2021-10-30 16:03 | XR_ITS ---
PROCEDURE INFORMATION: Exam: XR Chest Exam date and time: 10/30/2021 4:09 PM Age: 51 years old Clinical indication: Shortness of breath; Additional info: SOB, copd, smoker TECHNIQUE: Imaging protocol: XR of the chest. Views: 2 views. COMPARISON: CR XR CHEST 2V 08/29/2020 8:35 PM FINDINGS: Airway: Patent Lungs: Bilateral perihilar haziness and streaky-like opacities. Mild segmental bronchial wall thickening. Hazy opacification in the right lung base. COPD related lung changes. Pulmonary emphysema noted. Pleural spaces: Persistent blunting of the right costophrenic angle. No pneumothorax. Left costophrenic angle clear. Heart/Mediastinum: Unremarkable. No cardiomegaly. Bones/joints: No acute skeletal abnormality or aggressive osseous lesion. IMPRESSION: 1. Interstitial findings favoring chronic interstitial disease. 2. Right lung base findings concerning for developing pneumonia in the appropriate clinical setting. 3. Persistent right costophrenic angle findings which are most probably related to scarring/atelectasis considering that the posterior costophrenic angles are clear. Anterior loculated pleural effusion within the differential diagnosis.
--- NOTE | 2021-10-30 16:29 | HMH.EDGENADL ---
ED Disposition Clinical Impression: Pneumonia Qualifiers: Pneumonia type: due to unspecified organism Laterality: right Lung location: middle lobe of lung Qualified Code(s): J18.9 - Pneumonia, unspecified organism Respiratory failure with hypoxia and hypercapnia Qualifiers: Chronicity: acute on chronic Qualified Code(s): J96.21 - Acute and chronic respiratory failure with hypoxia; J96.22 - Acute and chronic respiratory failure with hypercapnia Disposition: Home, Self-Care Condition on Discharge: Fair Instructions: DI for Pneumonia -- Adult, DI for Chronic Obstructive Pulmonary Disease, DI for Hypoxia Additional Instructions: Increase your oxygen at home to 4 L. Use your breathing treatments 4 times a day. Follow-up with your primary care provider next week. Additional instructions for PNEUMONIA: Take antibiotics as prescribed. See your physician as soon as possible for further evaluation. Return immediately if you have an uncontrollable fever greater than 102 degrees, difficulty breathing or shortness of breath, persistent vomiting, or severe chest pain. Prescriptions: Cefdinir [Omnicef 300mg Capsule] 300 mg PO BID #20 cap Transmission Status: Pending to [email or web address] predniSONE [Prednisone 20mg Tab] 20 mg PO BID #10 tab Transmission Status: Pending to [facility] Azithromycin [Zithromax 250mg tab] 250 mg PO DAILY #4 tab Transmission Status: Pending to [email or web address] Referrals: Galina Mo APRN [Primary Care Provider] - - Critical Care Critical Care Time: No Attestation: On 10/30/21, the high probability of a clinically significant, sudden or life threatening deterioration of the following system(s) required my full and direct attention, intervention and personal management. The time I documented below is in addition to time spent performing reported procedures but includes the following listed in this critical care notation. Medical Decision Making - Shaheed Inquiry Pt receiving controlled substance: No Vital Signs: 10/30/21 16:26 10/30/21 16:54 10/30/21 17:11 Temperature 98.2 F Temperature Source Oral Pulse Rate [Left Radial] 97 H 96 H 95 H Respiratory Rate 27 H 17 Blood Pressure [Right Arm] 136/93 H 124/86 132/85 Blood Pressure Mean [Right Arm] 107 98 100 Blood Pressure Source [Right Arm] Automatic Cuff Blood Pressure Position [Right Arm] Sitting 02 Sat by Pulse Oximetry 86 L 91 L 92 L Oxygen Delivery Method Nasal Cannula Nasal Cannula Nasal Cannula Oxygen Flow Rate (LPM) 3.5 3.5 5 10/30/21 17:30 Temperature Temperature Source Pulse Rate [Left Radial] 87 Respiratory Rate Blood Pressure [Right Arm] 134/86 Blood Pressure Mean [Right Arm] 102 Blood Pressure Source [Right Arm] Automatic Cuff Blood Pressure Position [Right Arm] Sitting 02 Sat by Pulse Oximetry 96 Oxygen Delivery Method Nasal Cannula Oxygen Flow Rate (LPM) 3.5 - Lab Data Lab Results 10/30/21 16:36: Specimen Source Right radial, O2 % 5lpm, ABG pH 7.37, ABG pCO2 64.1 H, ABG pO2 56.3 L, ABG HCO3 36.2 H, ABG Total CO2 38.2 H, ABG O2 Saturation 90, ABG Base Excess 10.9 H, Bharath Test Acceptable 10/30/21 16:45: SARS-CoV-2 (PCR) Not detected, Influenza A Untype (PCR) Not detected, Influenza Type B (PCR) Not detected 10/30/21 16:52: WBC 7.8, RBC 4.92, Hgb 14.8, Hct 46.7, MCV 94.8, MCH 30.1, MCHC 31.8, RDW 13.5, Plt Count 229, MPV 9.7, Neut % (Auto) 68.1, Lymph % (Auto) 21.3, Terrell % (Auto) 6.7, Eos % (Auto) 1.6, Baso % (Auto) 2.3 H, Neut # (Auto) 5.3, Lymph # (Auto) 1.7, Terrell # (Auto) 0.5, Eos # (Auto) 0.1, Baso # (Auto) 0.2 10/30/21 16:52: Sodium 139, Potassium 3.1 L, Chloride 95 L, Carbon Dioxide 39 H, Anion Gap 8.1, BUN 7, Creatinine 0.70, Estimated Creat Clear 99, Estimated GFR 88, Est GFR ( Amer) 107, Glucose 119 H, Calcium 8.7, Total Bilirubin 0.2, AST 19, ALT 11 L, Alkaline Phosphatase 75, Total Protein 6.9, Albumin 3.5, Globulin 3.4 H, Albumin/Globulin Ratio 1.0 L
--- NOTE | 2021-10-30 16:30 | PC.NURSE ---
ED MD at
[2021-10-30 16:53] LABS: Coronavirus 19, PCR Not Detected (NotDetected); Influenza A, PCR Not Detected (NotDetected); Influenza B, PCR Not Detected (NotDetected)
--- NOTE | 2021-10-30 16:55 | PC.NURSE ---
Phuong RN at BS RT at BS
[2021-10-30 17:02] LABS: ABG Base Excess 10.9 mmol/L (-2.4-2.3); ABG HCO3 36.2 mmhg (22.0-26.0); ABG Oxygen Saturation 90 % (90-100); ABG PH 7.37 mmol/L (7.35-7.45); ABG PO2 56.3 mmhg (80-100); ABG TCO2 38.2 mmhg (23-27)
--- NOTE | 2021-10-30 17:02 | PC.NURSE ---
patient finished breathing treatment at this time; currently coughing
[2021-10-30 17:03] LABS: Allen's Test Acceptable; Oxygen 5LPM %; Source Right Radial
[2021-10-30 17:06] LABS: ABG PCO2 64.1 mmhg (35.0-45.0)
[2021-10-30 17:20] LABS: Basophils # 0.2 K/mm3 (0-0.2); Basophils % 2.3 % (0.1-2.0); Eosinophils # 0.1 K/mm3 (0.0-0.4); Eosinophils % 1.6 % (0.1-12.0); Hematocrit 46.7 % (37.0-47.0); Hemoglobin 14.8 g/dL (12.2-16.2); Lymphocytes # 1.7 K/mm3 (0.7-4.5); Lymphocytes % 21.3 % (10-50); Mean Corpuscular HGB Conc 31.8 g/dL (31.8-35.4); Mean Corpuscular Hemoglobin 30.1 pg (27.0-31.2); Mean Corpuscular Volume 94.8 fl (81-99); Mean Platelet Volume 9.7 fl (7.4-10.4); Monocytes # 0.5 K/mm3 (0.1-1.0); Monocytes % 6.7 % (1.7-9.3); Neutrophils # 5.3 K/mm3 (1.8-7.8); Neutrophils % 68.1 % (37.0-80.0); Platelet Count 229 K/mm3 (142-424); Red Blood Count 4.92 M/mm3 (4.20-5.40); Red Cell Distribution Width 13.5 % (11.5-17.5); White Blood Count 7.8 K/mm3 (4.8-10.8)
[2021-10-30 17:21] LABS: Chloride 95 mmol/L (98-107); Potassium 3.1 mmoL/L (3.5-5.1); Sodium 139 mmol/L (136-145)
[2021-10-30 17:24] LABS: Alanine Aminotransferase 11 U/L (12-78); Albumin Level 3.5 g/dl (3.5-5.0); Alkaline Phosphatase 75 U/L (38-126); Aspartate Amino Transferase 19 U/L (14-36); Bilirubin,Total 0.2 mg/dl (0.2-1.3); Blood Urea Nitrogen 7 mg/dl (7-17); Creatinine Clearance Estimated 99 mL/min (50-200); Estimated Glomerular Filt Rate 88 ml/min (>60); GFR (African American) 107 ML/MIN (>60); Globulin 3.4 g/dL (1.3-3.2); Total Protein,Serum 6.9 g/dl (6.3-8.2)
[2021-10-30 17:25] LABS: Calcium 8.7 mg/dl (8.4-10.2); Glucose 119 mg/dl (74-100)
[2021-10-30 17:31] LABS: Anion Gap 8.1 mEq/L (5-15); Carbon Dioxide 39 mmol/L (22.0-30.0); Lactic Acid 0.7 mmol/L (0.7-2.1)
--- NOTE | 2021-10-30 17:49 | PC.NURSE ---
ED MD at speaking with patient with update on POC
--- NOTE | 2021-10-30 18:03 | PC.NURSE ---
HEMAL Baca at BS
--- NOTE | 2021-10-30 19:20 | PC.NURSE ---
Patient is resting in bed. Discharge pending completion of iv abx. Patient given a cup of ice. Asked if she would like to reposition but patient states that she is comfortable.
== END 2021-10-30 20:03 | disposition home or self-care (01) ==
LOC: UTC 15:49 → ER 16:11
PROVIDERS: Emergency Medicine; Emergency Provider Nurse Practitioner Family; PCP Nurse Practitioner
DX: J18.9 Pneumonia, unspecified organism (principal); J96.21 Acute and chronic respiratory failure with hypoxia; J96.22 Acute and chronic respiratory failure with hypercapnia; J02.9 Acute pharyngitis, unspecified; R53.81 Other malaise; I10 Essential (primary) hypertension; M79.10 Myalgia, unspecified site; J44.9 Chronic obstructive pulmonary disease, unspecified; F17.210 Nicotine dependence, cigarettes, uncomplicated; Z79.52 Long term (current) use of systemic steroids; Z99.81 Dependence on supplemental oxygen; Z20.822 Contact with and (suspected) exposure to COVID-19; Z82.49 Family history of ischemic heart disease and other diseases of the circulatory system
CPT/HCPCS: 71046; 80053; 82803; 83605; 85025; 87040; 96374; 96375; 99285; C9803; J0456; J0696; U0003; U0005

== ENCOUNTER 2021-10-31 21:28 | Emergency (ER) | payer MEDICAID, SELFPAY ==
[2021-10-31 21:29] VITALS: BP 157/100; PULSE 85; RESP 22; TEMP 36.6; O2SAT 92; BMI 28.3
[2021-10-31 21:48] VITALS: BMI 28.3
--- NOTE | 2021-10-31 21:53 | XR_ITS ---
PROCEDURE INFORMATION: Exam: XR Left Wrist Exam date and time: 10/31/2021 10:13 PM Age: 51 years old Clinical indication: Injury or trauma; Fall; Sprain or strain; Wrist; Left TECHNIQUE: Imaging protocol: XR Left wrist. Views: 3 or more views. COMPARISON: CR XR HAND LT MIN 3V 10/31/2021 10:08 PM FINDINGS: Bones/joints: Comminuted appearing impacted and dorsally angulated fracture of the distal radius which may extend to the articular surface with associated fracture of the ulnar styloid. Soft tissues: Soft tissue swelling overlying the wrist. IMPRESSION: Comminuted appearing impacted and dorsally angulated fracture of the distal radius which may extend to the articular surface with associated fracture of the ulnar styloid.
--- NOTE | 2021-10-31 21:53 | XR_ITS ---
PROCEDURE INFORMATION: Exam: XR Left Hand Exam date and time: 10/31/2021 10:08 PM Age: 51 years old Clinical indication: Injury or trauma; Fall; Sprain or strain; Hand; Left TECHNIQUE: Imaging protocol: XR Left hand. Views: 3 or more views. COMPARISON: No relevant prior studies available. FINDINGS: Bones/joints: Comminuted appearing impacted and dorsally angulated fracture of the distal radius which may extend to the articular surface with associated fracture of the ulnar styloid. Soft tissues: Soft tissue swelling overlying the wrist. IMPRESSION: Comminuted appearing impacted and dorsally angulated fracture of the distal radius which may extend to the articular surface with associated fracture of the ulnar styloid.
--- NOTE | 2021-10-31 21:53 | XR_ITS ---
PROCEDURE INFORMATION: Exam: XR Left Forearm Exam date and time: 10/31/2021 10:14 PM Age: 51 years old Clinical indication: Injury or trauma; Fall; Sprain or strain; Arm, lower; Left TECHNIQUE: Imaging protocol: XR Left forearm. Views: 2 views. COMPARISON: CR XR WRIST LT MIN 3V 10/31/2021 10:13 PM FINDINGS: Bones/joints: Comminuted appearing impacted and dorsally angulated fracture of the distal radius which may extend to the articular surface with associated fracture of the ulnar styloid. Soft tissues: Soft tissue swelling overlying the wrist. IMPRESSION: Comminuted appearing impacted and dorsally angulated fracture of the distal radius which may extend to the articular surface with associated fracture of the ulnar styloid.
--- NOTE | 2021-10-31 22:23 | HMH.EDGENADL ---
ED Disposition Clinical Impression: Closed fracture distal radius and ulna Qualifiers: Encounter type: initial encounter Laterality: left Qualified Code(s): S52.502A - Unspecified fracture of the lower end of left radius, initial encounter for closed fracture; S52.602A - Unspecified fracture of lower end of left ulna, initial encounter for closed fracture Disposition: Home, Self-Care Condition on Discharge: Good Additional Instructions: Nonweightbearing in left arm, keep splint in place until following up with orthopedics in their clinic. Take [place] as directed for severe pain, Tylenol Motrin for mild to moderate pain. Return to ED with new, concerning, worsening symptoms. These may include worsening pain, numbness/decreased sensation. Prescriptions: Hydrocod/Acet 5/325 mg [[place] 5/325mg tablet] 1 tab PO Q8 PRN 2 Days #6 tablet PRN Reason: Severe Pain Transmission Status: [facility] Referrals: Galina Mo APRN [Primary Care Provider] - Pankaj Nicole MD [Staff Physician] - - Critical Care Critical Care Time: No Attestation: On 10/31/21, the high probability of a clinically significant, sudden or life threatening deterioration of the following system(s) required my full and direct attention, intervention and personal management. The time I documented below is in addition to time spent performing reported procedures but includes the following listed in this critical care notation. Medical Decision Making - Medical Records Medical records reviewed: Yes: I reviewed the patient's medical records. - Shaheed Inquiry Pt receiving controlled substance: No Vital Signs: 10/31/21 21:29 11/01/21 01:03 Temperature 97.8 F 97.8 F Temperature Source Oral Oral Pulse Rate 88 Pulse Rate [Right] 85 Respiratory Rate 22 16 Blood Pressure 142/83 H Blood Pressure [Right Arm] 157/100 H Blood Pressure Mean [Right Arm] 119 02 Sat by Pulse Oximetry 92 L Oxygen Delivery Method Nasal Cannula Nasal Cannula Oxygen Flow Rate (LPM) 2.5 2.5 Orders (Tests/Meds): ED MEDICATIONS Discontinued Medications Generic Name Dose Route Start Last Admin Trade Name Freq PRN Reason Stop Dose Admin Hydrocodone Bitart/Acetaminophen 1 tab 11/01/21 00:13 11/01/21 00:15 Hydrocodone/Apap 5/325 Mg Tablet PO 11/01/21 00:14 1 tab ONCE ONE Administration Ketamine HCl 20 mg 10/31/21 22:20 11/01/21 00:14 Ketamine 500mg/10ml Vial IV 10/31/21 22:21 20 mg ONCE ONE Administration Morphine Sulfate 4 mg 10/31/21 21:54 10/31/21 22:07 Morphine 4mg/Ml Syringe IV 10/31/21 21:55 4 mg ONCE ONE Administration Ondansetron HCl 4 mg 10/31/21 21:54 10/31/21 22:07 Ondansetron 4mg/2ml Vial IV 10/31/21 21:55 4 mg ONCE ONE Administration Oxycodone HCl 5 mg 11/01/21 00:12 Oxycodone 5mg Immediate Release Tablet PO 11/01/21 00:13 ONCE ONE - Radiology Data #1 Image(s): Forearm Image Reviewed: Yes I reviewed the patient's radiology results IMPRESSION: Comminuted appearing impacted and dorsally angulated fracture of the distal radius which may extend to the articular surface with associated fracture of the ulnar styloid. Medical Decision Narrative: 51-year-old female presenting to the ED with a closed left wrist injury after a fall. Differential diagnoses include distal radius fracture, distal ulnar fracture, dislocation, contusion, open fracture. Given this work-up will include x-rays of the left forearm, hand, wrist. Labs not currently indicated. Vital signs are stable. She was given 4 mg IV morphine for pain, Zofran for nausea. General Adult HPI - General Chief complaint: Extremity Injury, Upper Stated complaint: ao 10/31 SNAPPED HER lEFT WREST Time Seen by Provider: 10/31/21 22:23 Mode of Arrival: Ambulatory Source of Information: Patient Limitations: No Limitations Description of Symptoms (Recalled from ER Triage Doc. by RN): pt states was ge
--- NOTE | 2021-11-01 00:26 | XR_ITS ---
PROCEDURE INFORMATION: Exam: XR Left Wrist Exam date and time: 11/01/2021 12:26 AM Age: 51 years old Clinical indication: Injury or trauma; Fall; Sprain or strain; Wrist; Left; Additional info: Post reduction # 1 images TECHNIQUE: Imaging protocol: XR Left wrist. Views: 1 or 2 views. COMPARISON: CR XR WRIST LT MIN 3V 10/31/2021 10:13 PM FINDINGS: Bones/joints: Post reduction images show interval improvement in the posterior displacement and angulation of the distal radius fracture Soft tissues: Soft tissue swelling about the wrist. No radiopaque foreign body. IMPRESSION: Interval improvement in the posterior displacement/angulation of the distal radius fracture.
--- NOTE | 2021-11-01 00:34 | XR_ITS ---
PROCEDURE INFORMATION: Exam: XR Left Wrist Exam date and time: 11/01/2021 12:34 AM Age: 51 years old Clinical indication: Injury or trauma; Fall; Sprain or strain; Wrist; Left; Additional info: Post reduction # 2 images TECHNIQUE: Imaging protocol: XR Left wrist. Views: 1 or 2 views. COMPARISON: CR XR WRIST LT 2V 11/01/2021 12:26 AM FINDINGS: Bones/joints: Acute transversely oriented comminuted fracture of the distal radial metaphysis with mild posterior angulation and displacement. Acute fracture of the ulnar styloid. Soft tissues: Diffuse soft tissue swelling about the wrist. IMPRESSION: Acute fractures of the distal radius and ulna as described.
[2021-11-01 01:03] VITALS: BP 142/83; PULSE 88; RESP 16; TEMP 36.6; O2SAT 93
== END 2021-11-01 01:58 | disposition home or self-care (01) ==
PROVIDERS: Emergency Provider Emergency Medicine; PCP Nurse Practitioner
DX: S52.502A Unspecified fracture of the lower end of left radius, initial encounter for closed fracture (principal); J44.9 Chronic obstructive pulmonary disease, unspecified; I10 Essential (primary) hypertension
CPT/HCPCS: 25605; 29125; 73090; 73100; 73110; 73130; 96374; 96375; 99284; J2405

== ENCOUNTER 2021-11-04 16:48 | Emergency (ER) | payer MEDICAID, SELFPAY ==
[2021-11-04 16:50] VITALS: BP 151/92; PULSE 90; RESP 16; TEMP 36.6; O2SAT 90; BMI 28.3
[2021-11-04 17:30] VITALS: BP 140/83; PULSE 88; RESP 18; O2SAT 91
--- NOTE | 2021-11-04 18:11 | HMH.EDGENADL ---
ED Disposition Clinical Impression: Left wrist fracture Qualifiers: Encounter type: initial encounter Fracture type: closed Qualified Code(s): S62.102A - Fracture of unspecified carpal bone, left wrist, initial encounter for closed fracture Disposition: Home, Self-Care Condition on Discharge: Good Instructions: DI for Wrist Fracture, How to Take Care of Your Splint Additional Instructions: Percocet as needed for pain. Additional instructions for FRACTURED (BROKEN) BONE: See Dr. Nicole/Papi on Wednesday as scheduled. Treat your splint like you would a cast: Do not get it wet (cover with a plastic bag while bathing or showering). If the splint feels too tight, you may loosen the sergio wrap covering it, but do not remove the splint. You may ice the fracture by applying an ice pack over the top of the splint, without removing the splint. Return to an emergency department immediately if you have uncontrollable pain, loss of feeling or inability to move your injured extremity. Additional instructions for CONTROLLED SUBSTANCES: You have been prescribed a medication that is a controlled substance. Controlled substances include pain medications known as opiates and sedative nerve medications known as benzodiazepines. Tramadol, fioricet, and gabapentin are also controlled substances. Some common opiates include: Codeine (such as Tylenol #3) Hydrocodone (Vicodin, Lortab, Lorcet, [place]) Oxycodone (Percocet, Percodan, Oxycodone, Oxy IR) Some common benzodiazepines include: Diazepam (Valium) Lorazepam (Ativan) Alprazolam (Xanax) Clonazepam (Klonopin) Oxazepam (Serax) All of these controlled substances are highly addictive and frequently abused. Misuse can and frequently does lead to addiction as well as overdose and . Medication should be stored in a locked cabinet or other secure storage unit. Do not store the medication in a motor vehicle. Short term supplies, 3 days or less, are prescribed because of the highly addictive nature of the medication. Any of the controlled substance medication NOT taken should be disposed of properly and NOT SAVED. The recommended method of disposing of unused medications is: Place the medicines in a sealable plastic bag. If the medicine is a solid, crush it or add water to dissolve it. Add something undesirable (cat litter, coffee grounds, etc.) Dispose of sealed bag in household trash Do not flush or pour unused medicines down a sink or drain. Controlled substances should not be shared, given away or sold. Because of the addictive nature and frequent abuse, these medications are sometimes stolen. These medications should be kept in a safe place where they cannot be stolen. Do not keep them in your car or purse. Lost or stolen prescriptions for controlled substances WILL NOT BE REFILLED in this emergency department, regardless of whether a police report was filed. Prescriptions: Oxycodone HCl/Acetaminophen [Percocet 5/325mg tablet] 1 tab PO Q6HP PRN #12 tab PRN Reason: Moderate To Severe Pain Transmission Status: Sent to [id number] Referrals: Galina Mo APRN [Primary Care Provider] - - Critical Care Critical Care Time: No Attestation: On 11/04/21, the high probability of a clinically significant, sudden or life threatening deterioration of the following system(s) required my full and direct attention, intervention and personal management. The time I documented below is in addition to time spent performing reported procedures but includes the following listed in this critical care notation. Medical Decision Making - Shaheed Inquiry Pt receiving controlled substance: Yes Shaheed was queried for this patient: Yes Risks and benefits of using a controlled substance: were discussed with pt by me Vital Signs: 11/04/21 16:50 11/04/21 17:30 Temperature 98 F Temperature Source Oral Pulse Rate 88 Pulse Rate [Radial] 90 Respiratory Ra
--- NOTE | 2021-11-04 18:28 | XR_ITS ---
PROCEDURE INFORMATION: Exam: XR Left Wrist Exam date and time: 11/04/2021 6:33 PM Age: 51 years old Clinical indication: Injury or trauma; Fall; Fracture, traumatic injury; Closed fracture; Radius and ulna and wrist; Left; Bone fracture not specified; Part of radius fracture not specified; Part of ulna fracture not specified; Injury date: 10/31/21; Additional info: C/O worsening pain// had a FX 10/31/21 from a fall was splinted and is back with worsening pain -- er Dr wanted additional xrays TECHNIQUE: Imaging protocol: XR Left wrist. Views: 3 or more views. COMPARISON: CR XR WRIST LT 2V 11/01/2021 12:34 AM FINDINGS: Bones/joints: Compared to prior study, the distal radial metaphyseal fracture has decreased posterior angulation. There is approximately 4 mm of posterior displacement of the distal fracture component, which also appears improved compared to prior study. Intra-articular component cannot be excluded. Redemonstration of ulnar styloid process fracture. Soft tissues: There is hematoma around the fractures. IMPRESSION: 1. Compared to prior study, the distal radial metaphyseal fracture has decreased posterior angulation. There is approximately 4 mm of posterior displacement of the distal fracture component, which also appears improved compared to prior study. Intra-articular component cannot be excluded. 2. Redemonstration of ulnar styloid process fracture.
[2021-11-04 19:18] VITALS: BP 155/78; PULSE 78; RESP 16; TEMP 36.6; O2SAT 98
== END 2021-11-04 19:20 | disposition home or self-care (01) ==
PROVIDERS: Emergency Provider Emergency Medicine; PCP Nurse Practitioner
DX: S62.102D Fracture of unspecified carpal bone, left wrist, subsequent encounter for fracture with routine healing (principal)
CPT/HCPCS: 73110; 99283

== ENCOUNTER → 2021-12-25 11:29 | Outpatient (CLI) | payer MEDICAID, SELFPAY | PROVIDERS: PCP Nurse Practitioner; Visit Provider Physician Assistant Medical | DX: S52.502A Unspecified fracture of the lower end of left radius, initial encounter for closed fracture (principal) | CPT/HCPCS: C9803; U0003; U0005 ==

== ENCOUNTER → 2022-01-06 17:17 | Outpatient (CLI) | payer MEDICAID, SELFPAY ==
--- NOTE | 2022-01-06 | XR_ITS ---
FINAL REPORT CLINICAL HISTORY: . COMPARISON: October 30, 2021 FINDINGS: Two views of the chest were obtained. The heart size and pulmonary vascularity are within normal limits. The mediastinum is normal. There is stable right basilar atelectasis or pneumonia. There is a small right pleural effusion. There is no pneumothorax. The bony thorax is intact. IMPRESSION: Stable right base atelectasis or pneumonia. Reviewed, Interpreted and Dictated by Walker Crump III, MD Transcribed by Pravin Jimenez Authenticated and [facility]
[2022-01-06 17:53] LABS: Basophils # 0.2 K/mm3 (0-0.2); Basophils % 2.2 % (0.1-2.0); Eosinophils # 0.4 K/mm3 (0.0-0.4); Eosinophils % 5.3 % (0.1-12.0); Hematocrit 48.8 % (37.0-47.0); Hemoglobin 15.4 g/dL (12.2-16.2); Lymphocytes # 2.3 K/mm3 (0.7-4.5); Lymphocytes % 31.2 % (10-50); Mean Corpuscular HGB Conc 31.6 g/dL (31.8-35.4); Mean Corpuscular Hemoglobin 29.6 pg (27.0-31.2); Mean Corpuscular Volume 93.8 fl (81-99); Mean Platelet Volume 10.2 fl (7.4-10.4); Monocytes # 0.4 K/mm3 (0.1-1.0); Monocytes % 5.8 % (1.7-9.3); Neutrophils # 4.1 K/mm3 (1.8-7.8); Neutrophils % 55.4 % (37.0-80.0); Platelet Count 152 K/mm3 (142-424); Red Cell Distribution Width 14.9 % (11.5-17.5); White Blood Count 7.3 K/mm3 (4.8-10.8)
[2022-01-06 18:36] LABS: Alanine Aminotransferase 11 U/L (12-78); Albumin Level 3.9 g/dl (3.5-5.0); Albumin/Globulin Ratio 1.5 (1.1-1.8); Alkaline Phosphatase 61 U/L (38-126); Anion Gap 7.9 mEq/L (5-15); Aspartate Amino Transferase 21 U/L (14-36); Bilirubin,Total 0.2 mg/dl (0.2-1.3); Blood Urea Nitrogen 8 mg/dl (7-17); Calcium 8.8 mg/dl (8.4-10.2); Carbon Dioxide 32 mmol/L (22.0-30.0); Chloride 102 mmol/L (98-107); Chol/HDL Ratio 5.4 (1-3.5); Cholesterol 210 mg/dl (140-200); Estimated Glomerular Filt Rate 105 ml/min (>60); GFR (African American) 128 ML/MIN (>60); Globulin 2.6 g/dL (1.3-3.2); Glucose 109 mg/dl (74-100); HDL Cholesterol 39 mg/dl (40-60); Potassium 3.9 mmoL/L (3.5-5.1); Sodium 138 mmol/L (136-145); Total Protein,Serum 6.5 g/dl (6.3-8.2); Triglycerides 166 mg/dl (30-150); VLDL Cholesterol 33 mg/dL (0-40)
== END ==
PROVIDERS: PCP Nurse Practitioner; Visit Provider Nurse Practitioner
DX: R06.00 Dyspnea, unspecified (principal); I10 Essential (primary) hypertension; E78.2 Mixed hyperlipidemia
CPT/HCPCS: 36415; 71046; 80053; 80061; 85025

== ENCOUNTER → 2022-01-07 10:56 | Outpatient (CLI) | payer MEDICAID, SELFPAY | PROVIDERS: PCP Nurse Practitioner; Visit Provider Nurse Practitioner | DX: R06.02 Shortness of breath (principal) | CPT/HCPCS: 94060; 94726; 94729 ==

== ENCOUNTER → 2022-03-26 15:22 | Outpatient (CLI) | payer MEDICAID, SELFPAY ==
--- NOTE | 2022-03-26 15:28 | CT_ITS ---
FINAL REPORT CLINICAL HISTORY: lung cancer screening, 51-year-old current smoker with at least 30 pack-year smoking history COMPARISON: 08/29/2020 FINDINGS: Low-Dose Chest CT Axial images were obtained from the lung apex to the mid abdomen by computed tomography. Low-dose protocol was utilized. CTDI vol (mGy): 2.90 DLP (mGy-cm): 96.38 There is no axillary adenopathy. There is no hilar adenopathy. There are several borderline sized mediastinal lymph nodes. The heart is proper size. There is no pericardial or pleural effusion. Lung window images demonstrate mild changes of emphysema with mild pulmonary scarring. There are multiple small, less than 5 mm, pulmonary nodules including the following: a 3 mm anterior right upper lobe nodule seen on image 27, a 4 mm right middle lobe nodule on image 47, and a 3 mm anterior left lower lobe nodule on image 38. Some of these nodules are not well seen on the prior exam and may be new. Limited images of the upper abdomen are unremarkable. IMPRESSION: Multiple less than 5 mm pulmonary nodules. Lung RADS category 3. Recommend 6 month follow-up low-dose chest CT. Reviewed, Interpreted and Dictated by Walker Crump III, MD Transcribed by Phyllis Seo Authenticated and [facility]
== END ==
PROVIDERS: PCP Nurse Practitioner; Visit Provider Internal Medicine Pulmonary Disease
DX: Z87.891 Personal history of nicotine dependence (principal); Z12.2 Encounter for screening for malignant neoplasm of respiratory organs
CPT/HCPCS: 71271

== ENCOUNTER 2022-08-13 18:01 | Emergency (ER) | payer MEDICAID, SELFPAY ==
[2022-08-13] VITALS (7 sets, daily range): BP systolic 128–153; BP diastolic 85–106; PULSE 100–114; RESP 13–28; TEMP 37; O2SAT 90–94; BMI 27.3
--- NOTE | 2022-08-13 17:58 | ECG_ITS ---
APPROVED REPORT Exam: Resting ECG HR:107 bpm ECG Measurements Heart Rate 107 AXES [place] 135 P 79 QRSd 86 QRS 102 QT 332 T 66 QTc 395 Conclusion SINUS TACHYCARDIA RIGHT AXIS DEVIATION [QRS AXIS > 100] ABNORMAL ECG UNCONFIRMED REPORT Electronically signed by : Johnie Briones MD 08/14/2022 08:09:39
--- NOTE | 2022-08-13 18:10 | XR_ITS ---
PROCEDURE INFORMATION: Exam: XR Chest Exam date and time: 08/13/2022 6:12 PM Age: 52 years old Clinical indication: Cough and shortness of breath; Patient HX: Chronic cough x 1 wk, worsened x last couple days. HX copd, cp on inspiration. Smoker; Additional info: Chest pain TECHNIQUE: Imaging protocol: Radiologic exam of the chest. Views: 2 views. COMPARISON: CT LUNG SCREENING 03/26/2022 3:34 PM FINDINGS: Lungs: Right basilar opacities partially silhouette the diaphragm are favored to represent combination of atelectasis/pleural effusion/consolidation. Pleural spaces: See Lungs finding. Heart/Mediastinum: Unremarkable. No cardiomegaly. Bones/joints: Unremarkable. IMPRESSION: Right basilar opacities partially silhouette the diaphragm are favored to represent combination of atelectasis/pleural effusion/consolidation.
--- NOTE | 2022-08-13 18:20 | PC.NURSE ---
pt walked to rad
--- NOTE | 2022-08-13 18:20 | PC.NURSE ---
Pt to XR
[2022-08-13 18:22] LABS: Coronavirus 19, PCR Not Detected (NotDetected); Influenza A, PCR Not Detected (NotDetected); Influenza B, PCR Not Detected (NotDetected)
[2022-08-13 18:25] LABS: Basophils # 0.1 K/mm3 (0-0.2); Basophils % 0.7 % (0.1-2.0); Chloride 98 mmol/L (98-107); Eosinophils # 0.1 K/mm3 (0.0-0.4); Eosinophils % 1.2 % (0.1-12.0); Hematocrit 46.3 % (37.0-47.0); Lymphocytes # 1.3 K/mm3 (0.7-4.5); Lymphocytes % 11.9 % (10-50); Mean Corpuscular HGB Conc 32.4 g/dL (31.8-35.4); Mean Corpuscular Hemoglobin 30.7 pg (27.0-31.2); Mean Corpuscular Volume 94.9 fl (81-99); Mean Platelet Volume 9.2 fl (7.4-10.4); Monocytes # 0.6 K/mm3 (0.1-1.0); Monocytes % 5.7 % (1.7-9.3); Neutrophils # 8.9 K/mm3 (1.8-7.8); Neutrophils % 80.5 % (37.0-80.0); Platelet Count 174 K/mm3 (142-424); Red Blood Count 4.88 M/mm3 (4.20-5.40); Red Cell Distribution Width 13.8 % (11.5-17.5); Sodium 138 mmol/L (136-145); White Blood Count 11.1 K/mm3 (4.8-10.8)
--- NOTE | 2022-08-13 18:25 | PC.NURSE ---
pt arrived back from rad she now using the restroom
[2022-08-13 18:26] LABS: Potassium 4.2 mmoL/L (3.5-5.1)
[2022-08-13 18:28] LABS: Blood Urea Nitrogen 9 mg/dl (7-17); Creatinine Clearance Estimated 82 mL/min (50-200); Estimated Glomerular Filt Rate 75 ml/min (>60); GFR (African American) 91 ML/MIN (>60)
[2022-08-13 18:29] LABS: Anion Gap 7.2 mEq/L (5-15); Calcium 8.1 mg/dl (8.4-10.2); Carbon Dioxide 37 mmol/L (22.0-30.0); Glucose 98 mg/dl (74-100)
[2022-08-13 18:43] LABS: Troponin I < 0.01 ng/ml (0.00-0.034)
--- NOTE | 2022-08-13 19:37 | CT_ITS ---
PROCEDURE INFORMATION: Exam: CTA Chest With Contrast Exam date and time: 08/13/2022 7:54 PM Age: 52 years old Clinical indication: Pain; Chest pressure; Additional info: eJff SODevendra TECHNIQUE: Imaging protocol: Computed tomographic angiography of the chest with contrast. 3D rendering (Not supervised by radiologist): MIP and/or 3D reconstructed images were created by the technologist. Radiation optimization: All CT scans at this facility use at least one of these dose optimization techniques: automated exposure control; mA and/or kV adjustment per patient size (includes targeted exams where dose is matched to clinical indication); or iterative reconstruction. Contrast material: ISOVUE 370; Contrast volume: 70 ml; Contrast route: INTRAVENOUS (IV); REPORTING DATA: Count of CT and Cardiac NM exams in prior 12 months: This patient has received [address] and 0 known cardiac nuclear medicine studies in the 12 months prior to the current study. COMPARISON: CT ANGIO CHEST 08/29/2020 9:59 PM FINDINGS: Pulmonary arteries: Normal. No pulmonary emboli. Aorta: Unremarkable. No aortic aneurysm. No aortic dissection. Lungs: Right basilar opacities partially silhouette the diaphragm with loss of airspace favoring atelectasis. Right middle lobe tree-in-bud opacities differential diagnosis includes infectious bronchiolitis less likely aspiration bronchiolitis. Lingular consolidation may represent atypical pneumonia. Pleural spaces: Unremarkable. No pneumothorax. No pleural effusion. Heart: Unremarkable. No cardiomegaly. No pericardial effusion. Lymph nodes: Prominent mediastinal and hilar lymph nodes are likely reactive. Bones/joints: Unremarkable. No acute fracture. Soft tissues: Unremarkable. IMPRESSION: 1. Right basilar opacities partially silhouette the diaphragm with loss of airspace favoring atelectasis. 2. Right middle lobe tree-in-bud opacities differential diagnosis includes infectious bronchiolitis less likely aspiration bronchiolitis. 3. Lingular consolidation may represent atypical pneumonia. No CT angiography evidence of pulmonary embolism.
--- NOTE | 2022-08-13 19:39 | [facility].EDGENADL ---
Discharge Plan Disposition Patient Disposition: Still a Patient Condition: Fair Prescriptions Prescriptions: No Action fluticasone propion-salmeterol [Advair Diskus] 250-50 mcg/dose blister with device 1 inh inhalation BID 90 Days Qty: 180 3RF ipratropium-albuterol 0.5 mg-3 mg(2.5 mg base)/3 mL solution for nebulization 3 ml IH QID PRN (Reason: shortness of breath or wheezing) 90 Days Qty: 270 3RF albuterol sulfate 90 mcg/actuation HFA aerosol inhaler 2 inh IH QID PRN (Reason: shortness of breath or wheezing) 90 Days Qty: 8.5 2RF levofloxacin 750 mg tablet 750 mg PO DAILY 5 Days Qty: 5 0RF diazepam 2 MG tablet 2 mg PO NEEDED PRN (Reason: anxiety ) cefuroxime axetil 500 MG tablet 500 mg PO BID Qty: 14 0RF furosemide 20 MG tablet 20 mg PO DAILYP PRN (Reason: Shortness Of Breath) Qty: 30 0RF irbesartan 75 MG tablet 75 mg PO DAILY Qty: 30 0RF benzonatate 100 MG capsule 100 mg PO TID Qty: 30 0RF oxycodone-acetaminophen 1 EACH tablet 1 tab PO Q6HP PRN (Reason: Moderate To Severe Pain) Qty: 12 0RF Referrals Follow up/Referrals: Galina Mo APRN [Primary Care Provider] - See instructions Clinical Impressions Clinical Impression: Chest pain, Acute exacerbation of chronic obstructive pulmonary disease, Acute on chronic respiratory failure with hypoxia and hypercapnia Discharge ED Provider: Hoang Ray Adult [facility] General Chief complaint: Chest Pain Stated complaint: chest pain Time Seen by Provider: 08/13/22 19:20 Mode of Arrival: EMS Source of Information: Patient Limitations: No Limitations Description of Symptoms (Recalled from ER Triage Doc. by RN): Presents via [facility] d/t left chest pain. Pt states she was watching TV earlier with her grandkids and got up to walk to the kitchen when she felt a sudden onset of left chest pain described as sharp. Hx of panic attaacks, COPD, and CHF. Pt stopped her medications approx. 1 yr ago; last appt with Cards at that time. History of Present Illness HPI narrative: Patient arrives by ambulance. States that she was watching TV today when she got sudden stabbing pain in the left anterior chest. Pain increases when she coughs and when she breathes. States that she has COPD. She has oxygen at home that she wears at night, and also during the day when needed. She states for the past couple of days she has had increased shortness of breath and increased need for oxygen use. Oxygen saturation has been lower than usual. She has a chronic cough productive of yellow sputum and says that her cough has been worse the past couple of days. She denies any fever. No leg swelling. She does continue to smoke. She sees Dr. Tafoya for pulmonology. Recently had some changes in her inhaler treatment. She has a nebulizer at home but does not use it every day, she has not used it in the past couple of days since she began feeling worse. She says that she stopped taking all of her medications a year ago except for her inhalers. Related Data Home Medications Medication Instructions Recorded Confirmed diazepam 2 mg tablet 2 mg PO NEEDED PRN anxiety 03/22/20 07/22/22 Previous Rx's Medication Instructions Recorded cefuroxime axetil 500 mg tablet 500 mg PO BID #14 tabs 03/26/20 furosemide 20 mg tablet 20 mg PO DAILYP PRN Shortness Of 03/26/20 Breath #30 tabs irbesartan 75 mg tablet 75 mg PO DAILY #30 tabs 03/26/20 benzonatate 100 mg capsule 100 mg PO TID #30 caps 08/30/20 oxycodone-acetaminophen 5 mg-325 1 tab PO Q6HP PRN Moderate To 11/04/21 mg tablet Severe Pain #12 tabs levofloxacin 750 mg tablet 750 mg PO DAILY 5 days #5 tabs 01/19/22 albuterol sulfate 90 mcg/actuation 2 inh inhalation QID PRN shortness 07/22/22 aerosol inhaler of breath or wheezing 90 days #8.5 grams fluticasone 250 mcg-salmeterol 50 1 inh inhalation BID 90 days #180 07/22/22 mcg/dose blistr powdr for ea inhalation (Advair Diskus) ipr
--- NOTE | 2022-08-13 19:50 | PC.NURSE ---
RADIOLOGY AMBULATED PT TO XRAY WITH NO OXYGEN
[2022-08-13 20:10] LABS: ABG Base Excess 6.3 mmol/L (-2.4-2.3); ABG HCO3 31.9 mmhg (22.0-26.0); ABG Oxygen Saturation 91 % (90-100); ABG PH 7.35 mmol/L (7.35-7.45); ABG PO2 55.9 mmhg (80-100); ABG TCO2 33.8 mmhg (23-27)
[2022-08-13 20:11] LABS: Allen's Test Acceptable; Source Right Radial
[2022-08-13 20:13] LABS: ABG PCO2 59.3 mmhg (35.0-45.0)
[2022-08-13 20:15] LABS: Lactic Acid 1.1 mmol/L (0.7-2.1)
== END 2022-08-13 22:01 | disposition home or self-care (01) ==
PROVIDERS: Emergency Medicine; Emergency Provider Student in an Organized Health Care Education/Training Program; PCP Nurse Practitioner
DX: J44.1 Chronic obstructive pulmonary disease with (acute) exacerbation (principal); R07.89 Other chest pain; J96.21 Acute and chronic respiratory failure with hypoxia; J96.22 Acute and chronic respiratory failure with hypercapnia; F17.210 Nicotine dependence, cigarettes, uncomplicated; R91.8 Other nonspecific abnormal finding of lung field; Z86.79 Personal history of other diseases of the circulatory system; Z87.39 Personal history of other diseases of the musculoskeletal system and connective tissue
CPT/HCPCS: 71046; 71275; 80048; 82803; 83605; 84484; 85025; 87040; 93005; 96361; 96365; 96375; 99285; C9803; J1956; J3475; Q9967; U0003; U0005